=== PATIENT | female | born 1940 | race Caucasian/White ===

== ENCOUNTER 2017-07-23 19:53 | Emergency (ER) | payer MEDICARE, BC ==
[~2017-07-23] VITALS: Ht 162.6 cm; Wt 118.2 kg
[~2017-07-23 19:53] MED LIST: CA C1TAB58 PO; CHOL100046 PO; FURO-150 PO; POTA-82 PO; VIT1CAPS12 PO
[2017-07-23] MEDS ORDERED: clindamycin 150mg capsule PO ONE (21:35)
[2017-07-23] MEDS ORDERED: CLIN-80 PO (21:37)
[2017-07-23 22:01] VITALS: BP 102/74
== END 2017-07-23 22:03 | disposition home or self-care (01) ==
LOC: ER 19:54
DX: L03.116 Cellulitis of left lower limb (principal); L03.115 Cellulitis of right lower limb; L02.416 Cutaneous abscess of left lower limb; L02.415 Cutaneous abscess of right lower limb; Z88.8 Allergy status to other drugs, medicaments and biological substances
CPT/HCPCS: 99284; A6253; A6449

== ENCOUNTER 2017-11-17 19:08 | Inpatient (IN) | payer MEDICARE, BC ==
[~2017-11-17] VITALS: Ht 162.6 cm; Wt 144.0 kg
[2017-11-17 23:37] LABS: BASOPHILS # (AUTO) 0.1 X10'3 (0-0.2); BASOPHILS % (AUTO) 0.9 % (0-1); EOSINOPHILS # (AUTO) 0.2 X10'3 (0-0.9); EOSINOPHILS % (AUTO) 1.9 % (0-6); HEMATOCRIT 36.2 % (35.0-45.0); LYMPHOCYTES # (AUTO) 1.5 X10'3 (1.1-4.8); LYMPHOCYTES % (AUTO) 15.8 % (21-51); MEAN CORPUSCULAR HEMOGLOBIN 32.4 PG (27.0-31.0); MEAN CORPUSCULAR HGB CONC 33.3 % (33.0-36.5); MEAN CORPUSCULAR VOLUME 97.4 FL (78-98); MEAN PLATELET VOLUME 8.1 FL (7.4-10.4); MONOCYTES # (AUTO) 0.8 X10'3 (0-0.9); NEUTROPHILS # (AUTO) 7.1 X10'3 (1.8-7.7); NEUTROPHILS % (AUTO) 73.4 % (42-75); PLATELET COUNT 246 X10'3 (140-440); RED BLOOD COUNT 3.71 X10'6 (4.20-5.60); RED CELL DISTRIBUTION WIDTH 14.6 % (11.5-14.5); WHITE BLOOD COUNT 9.7 X10'3 (4.5-11.0)
[2017-11-17 23:43] LABS: CLARITY,URINE CLEAR (Clear); COLOR,URINE YELLOW (Yellow); GLUCOSE, URINE NEGATIVE (Neg); KETONES,URINE NEGATIVE (Neg); LEUKOCYTE ESTERASE ,URINE NEGATIVE (Neg); NITRITES, URINE NEGATIVE (Neg); OCCULT BLOOD,URINE NEGATIVE (Neg); PH,URINE 6.5 (4.8-8.0); PROTEIN,URINE NEGATIVE (Neg); UROBILINOGEN,URINE 0.2 E.U/dL (0.2-1.0)
[2017-11-17 23:44] LABS: UA COLLECTION TYPE STRAIGHT CATH
[2017-11-17 23:53] LABS: ALANINE AMINOTRANSFERASE 20 U/L (12-78); ALBUMIN 3.1 G/DL (3.4-5.0); ALBUMIN/GLOBULIN RATIO 0.7 (1.1-1.5); ALKALINE PHOSPHATASE 76 IU/L (46-116); ANION GAP 6 (8-16); ASPARTATE AMINO TRANSFERASE 19 U/L (10-37); BILIRUBIN,TOTAL 0.2 MG/DL (0.1-1.0); BLOOD UREA NITROGEN 18 MG/DL (7-18); BUN/CREATININE RATIO 22.8 (6.6-38.0); CALCIUM 9.2 MG/DL (8.5-10.1); CHLORIDE 104 MMOL/L (99-107); CREATININE 0.79 MG/DL (0.40-0.90); GLUCOSE 102 MG/DL (70-104); POTASSIUM 4.1 MMOL/L (3.5-5.1); SODIUM 143 MMOL/L (135-145); TOTAL CARBON DIOXIDE 32.7 MMOL/L (24-32); TOTAL PROTEIN 7.3 G/DL (6.4-8.2); eGFR 70 ML/MIN
[2017-11-18] MEDS ORDERED: HYDROcodone/acetaminophen 10/325mg tab PO ONE (00:20)
[2017-11-18] MEDS ORDERED: HYDR-3965 PO (00:29)
[2017-11-18] MEDS ORDERED: OXYB5TAB11 PO (00:29)
[2017-11-18] MEDS ORDERED: SIMV40TA4 PO (00:29)
[2017-11-18] MEDS ORDERED: RANI150T44 PO (00:31)
[2017-11-18] MEDS ORDERED: TETR15DR85 (00:31)
[2017-11-18] MEDS ORDERED: LOPE-155 (00:32)
[2017-11-18] MEDS ORDERED: magnesium hydroxide 30ml (MOM) UD suspension PO PRN (00:45)
[2017-11-18] MEDS ORDERED: HYDROcodone/acetaminophen 5mg/325mg tablet PO PRN ×2 (00:45→13:00)
[2017-11-18] MEDS ORDERED: mag hydrox/Alum hydrox/simeth 30ml oral suspension PO PRN (00:45)
[2017-11-18] MEDS ORDERED: acetaminophen 325mg tablet PO PRN (00:45)
[2017-11-18] MEDS ORDERED: morphine 4 MG/ML inj SYRINge IV ONE (00:45)
[2017-11-18] MEDS ORDERED: docusate sod 100mg capsule PO PRN (00:45)
[2017-11-18 02:00] VITALS: BP 131/50
[2017-11-18] MEDS: ondansetron/PF 4mg/2ml inj IV PRN ×2 (02:00→20:41)
[2017-11-18 06:00] VITALS: BP 101/41
[2017-11-18] MEDS: HYDROcodone/acetaminophen 10/325mg tab PO PRN ×3 (07:12→20:40)
[2017-11-18 10:00] VITALS: BP 101/41
[2017-11-18 10:45] LABS: CHOL/HDL RATIO 4.2 (0.00-4.99); CHOLESTEROL 209 MG/DL (0-200); HDL CHOLESTEROL 50 MG/DL (35-60); LDL CHOLESTEROL 137 MG/DL (50-100); TRIGLYCERIDES 97 MG/DL (20-135)
[2017-11-18] MEDS ORDERED: famotidine 20mg tablet PO PRN (11:55)
[2017-11-18] MEDS: levoFLOXACIN-Levaquin 750MG/D5 150 ML IV SCH (17:26)
[2017-11-18 18:00] VITALS: BP 142/56
[2017-11-18] MEDS ORDERED: VIT D3 PO SCH (20:00)
[2017-11-18] MEDS ORDERED: DL E AC PO SCH (20:00)
[2017-11-18] MEDS ORDERED: MGOX PO SCH (20:00)
[2017-11-18] MEDS ORDERED: LUT PO SCH (20:00)
[2017-11-18] MEDS ORDERED: CA CITRATE PO SCH (20:00)
[2017-11-18] MEDS ORDERED: B6 PO SCH (20:00)
[2017-11-18] MEDS ORDERED: [UNRECOGNIZED DRUG - OTHER] PO SCH (20:00)
[2017-11-18] MEDS ORDERED: VIT C PO SCH (20:00)
[2017-11-18] MEDS ORDERED: ZNOX PO SCH (20:00)
[2017-11-18] MEDS ORDERED: COPPER PO SCH (20:00)
[2017-11-18] MEDS: atorvastatin 20mg tablet PO SCH (20:40)
[2017-11-18] MEDS: oxybutynin 5mg tablet PO SCH (20:41)
[2017-11-18] MEDS ORDERED: atorvastatin 20mg tablet PO SCH (21:00)
[2017-11-18 22:00] VITALS: BP 119/47
[2017-11-19] MEDS ORDERED: metoclopramide 5 mg/ml inj IV ONE (01:30)
[2017-11-19] MEDS: HYDROcodone/acetaminophen 10/325mg tab PO PRN ×3 (04:45→15:28)
[2017-11-19 05:00] VITALS: BP 136/47
[2017-11-19 07:31] LABS: BASOPHILS % (AUTO) 0.2 % (0-1); EOSINOPHILS % (AUTO) 0.2 % (0-6); HEMATOCRIT 33.2 % (35.0-45.0); LYMPHOCYTES # (AUTO) 1.2 X10'3 (1.1-4.8); LYMPHOCYTES % (AUTO) 15.2 % (21-51); MEAN CORPUSCULAR HEMOGLOBIN 32.2 PG (27.0-31.0); MEAN CORPUSCULAR HGB CONC 33.2 % (33.0-36.5); MEAN CORPUSCULAR VOLUME 97.1 FL (78-98); MEAN PLATELET VOLUME 8.1 FL (7.4-10.4); MONOCYTES # (AUTO) 0.5 X10'3 (0-0.9); MONOCYTES % (AUTO) 6.2 % (2-12); NEUTROPHILS % (AUTO) 78.2 % (42-75); PLATELET COUNT 206 X10'3 (140-440); RED BLOOD COUNT 3.42 X10'6 (4.20-5.60); RED CELL DISTRIBUTION WIDTH 14.4 % (11.5-14.5); WHITE BLOOD COUNT 7.7 X10'3 (4.5-11.0)
[2017-11-19] MEDS: oxybutynin 5mg tablet PO SCH ×2 (07:46→20:52)
[2017-11-19] MEDS: levoFLOXACIN-Levaquin 750MG/D5 150 ML IV SCH (07:46)
[2017-11-19] MEDS: enoxaparin 60mg/0.6ml syringe SUBCUT SCH (07:47)
[2017-11-19 08:00] LABS: ALBUMIN 2.7 G/DL (3.4-5.0); ANION GAP 8 (8-16); BLOOD UREA NITROGEN 19 MG/DL (7-18); BUN/CREATININE RATIO 24.1 (6.6-38.0); CALCIUM 8.5 MG/DL (8.5-10.1); CHLORIDE 102 MMOL/L (99-107); CREATININE 0.79 MG/DL (0.40-0.90); GLUCOSE 100 MG/DL (70-104); POTASSIUM 4.3 MMOL/L (3.5-5.1); SODIUM 140 MMOL/L (135-145); TOTAL CARBON DIOXIDE 30.4 MMOL/L (24-32); eGFR 70 ML/MIN
[2017-11-19 10:06] VITALS: BP 120/46
[2017-11-19] MEDS: ondansetron/PF 4mg/2ml inj IV PRN (10:35)
[2017-11-19 18:00] VITALS: BP 126/46
[2017-11-19] MEDS: atorvastatin 20mg tablet PO SCH (20:52)
[2017-11-19] MEDS: lactobacillus rhamnosus 10,000 MMU CELLS/CAPSULE PO SCH (20:52)
[2017-11-19 22:00] VITALS: BP 124/45
[2017-11-20] MEDS: HYDROcodone/acetaminophen 10/325mg tab PO PRN ×4 (00:12→20:05)
[2017-11-20 05:00] VITALS: BP 114/48
[2017-11-20 06:18] LABS: BASOPHILS % (AUTO) 0.6 % (0-1); EOSINOPHILS # (AUTO) 0.3 X10'3 (0-0.9); HEMATOCRIT 32.9 % (35.0-45.0); HEMOGLOBIN 10.9 g/dl (12.0-16.0); LYMPHOCYTES # (AUTO) 1.6 X10'3 (1.1-4.8); LYMPHOCYTES % (AUTO) 21.2 % (21-51); MEAN CORPUSCULAR HEMOGLOBIN 32.2 PG (27.0-31.0); MEAN CORPUSCULAR HGB CONC 33.2 % (33.0-36.5); MEAN CORPUSCULAR VOLUME 96.9 FL (78-98); MEAN PLATELET VOLUME 7.8 FL (7.4-10.4); MONOCYTES # (AUTO) 0.8 X10'3 (0-0.9); MONOCYTES % (AUTO) 10.9 % (2-12); NEUTROPHILS # (AUTO) 4.9 X10'3 (1.8-7.7); NEUTROPHILS % (AUTO) 63.3 % (42-75); PLATELET COUNT 220 X10'3 (140-440); RED BLOOD COUNT 3.39 X10'6 (4.20-5.60); RED CELL DISTRIBUTION WIDTH 14.5 % (11.5-14.5); WHITE BLOOD COUNT 7.8 X10'3 (4.5-11.0)
[2017-11-20 06:45] LABS: ALBUMIN 2.6 G/DL (3.4-5.0); ANION GAP 5 (8-16); BLOOD UREA NITROGEN 14 MG/DL (7-18); BUN/CREATININE RATIO 18.7 (6.6-38.0); CALCIUM 8.7 MG/DL (8.5-10.1); CHLORIDE 104 MMOL/L (99-107); CREATININE 0.75 MG/DL (0.40-0.90); GLUCOSE 85 MG/DL (70-104); SODIUM 142 MMOL/L (135-145); TOTAL CARBON DIOXIDE 32.7 MMOL/L (24-32); eGFR 75 ML/MIN
[2017-11-20] MEDS: lactobacillus rhamnosus 10,000 MMU CELLS/CAPSULE PO SCH ×2 (08:09→20:04)
[2017-11-20] MEDS: enoxaparin 60mg/0.6ml syringe SUBCUT SCH (08:09)
[2017-11-20] MEDS: oxybutynin 5mg tablet PO SCH ×2 (08:09→20:04)
[2017-11-20] MEDS: levoFLOXACIN-Levaquin 750MG/D5 150 ML IV SCH (08:09)
[2017-11-20] MEDS: ondansetron/PF 4mg/2ml inj IV PRN (08:11)
[2017-11-20 10:00] VITALS: BP 108/44
[2017-11-20 18:00] VITALS: BP 117/99
[2017-11-20] MEDS: atorvastatin 20mg tablet PO SCH (20:04)
[2017-11-20 22:00] VITALS: BP 118/46
[2017-11-21] MEDS: HYDROcodone/acetaminophen 10/325mg tab PO PRN ×3 (02:42→12:13)
[2017-11-21 06:00] VITALS: BP 126/66
[2017-11-21 06:10] LABS: BASOPHILS % (AUTO) 0.4 % (0-1); EOSINOPHILS # (AUTO) 0.3 X10'3 (0-0.9); EOSINOPHILS % (AUTO) 3.4 % (0-6); HEMATOCRIT 32.9 % (35.0-45.0); HEMOGLOBIN 11.1 g/dl (12.0-16.0); LYMPHOCYTES # (AUTO) 1.5 X10'3 (1.1-4.8); LYMPHOCYTES % (AUTO) 19.9 % (21-51); MEAN CORPUSCULAR HEMOGLOBIN 32.6 PG (27.0-31.0); MEAN CORPUSCULAR HGB CONC 33.7 % (33.0-36.5); MEAN CORPUSCULAR VOLUME 96.7 FL (78-98); MEAN PLATELET VOLUME 7.6 FL (7.4-10.4); MONOCYTES % (AUTO) 12.7 % (2-12); NEUTROPHILS # (AUTO) 4.8 X10'3 (1.8-7.7); NEUTROPHILS % (AUTO) 63.6 % (42-75); PLATELET COUNT 236 X10'3 (140-440); RED CELL DISTRIBUTION WIDTH 14.1 % (11.5-14.5); WHITE BLOOD COUNT 7.6 X10'3 (4.5-11.0)
[2017-11-21 06:30] LABS: ANION GAP 5 (8-16); BLOOD UREA NITROGEN 17 MG/DL (7-18); BUN/CREATININE RATIO 20.7 (6.6-38.0); CHLORIDE 104 MMOL/L (99-107); CREATININE 0.82 MG/DL (0.40-0.90); GLUCOSE 92 MG/DL (70-104); SODIUM 142 MMOL/L (135-145); TOTAL CARBON DIOXIDE 33.4 MMOL/L (24-32)
[2017-11-21 06:31] LABS: ALBUMIN 2.5 G/DL (3.4-5.0); CALCIUM 8.4 MG/DL (8.5-10.1); eGFR 67 ML/MIN
[2017-11-21] MEDS: lactobacillus rhamnosus 10,000 MMU CELLS/CAPSULE PO SCH (07:51)
[2017-11-21] MEDS: oxybutynin 5mg tablet PO SCH (07:51)
[2017-11-21] MEDS: enoxaparin 60mg/0.6ml syringe SUBCUT SCH (07:54)
[2017-11-21 10:00] VITALS: BP 112/43
[2017-11-21] MEDS ORDERED: levoFLOXACIN 750MG TABLET PO SCH (11:00)
== END 2017-11-21 15:50 | DRG 603 ==
LOC: ER 19:08 → ED HOLD 11-18 00:41 → EDBEDREQ 11-18 01:27 → ORTHO 4S 11-18 02:05
PROVIDERS: ADMIT Internal Medicine; ATTEND Internal Medicine
DX: L03.115 Cellulitis of right lower limb (principal); J96.10 Chronic respiratory failure, unspecified whether with hypoxia or hypercapnia; Z99.81 Dependence on supplemental oxygen; E66.01 Morbid (severe) obesity due to excess calories; Z68.43 Body mass index [BMI] 50.0-59.9, adult; L03.116 Cellulitis of left lower limb; M17.11 Unilateral primary osteoarthritis, right knee; G89.29 Other chronic pain; J44.9 Chronic obstructive pulmonary disease, unspecified; M62.3 Immobility syndrome (paraplegic); I89.0 Lymphedema, not elsewhere classified; E78.5 Hyperlipidemia, unspecified; I87.2 Venous insufficiency (chronic) (peripheral); K21.9 Gastro-esophageal reflux disease without esophagitis; Z88.8 Allergy status to other drugs, medicaments and biological substances; Z79.899 Other long term (current) drug therapy; Z87.891 Personal history of nicotine dependence; Z80.3 Family history of malignant neoplasm of breast
CPT/HCPCS: 36415; 71045; 73560; 80048; 80053; 80061; 81003; 83880; 85025; 87070; 93970; 97110; 97116; 97162; 97530; 99285; A4353; A6213; J1650; J1956; J2270; J2405; J2765

== ENCOUNTER 2018-05-10 16:27 | Inpatient (IN) | payer MEDICARE, BC ==
[~2018-05-10] VITALS: Ht 162.6 cm; Wt 150.0 kg
[~2018-05-10 16:27] MED LIST changes: -CHOL100046 PO; -FURO-150 PO; +HYDR-3965 PO; +LOPE-155; +OXYB5TAB11 PO; -POTA-82 PO; +RANI150T44 PO; +SIMV40TA4 PO; +TETR15DR85
[2018-05-10] MEDS ORDERED: normal saline 1000ML IV soln IV ONE (16:40)
[2018-05-10] MEDS ORDERED: methylPREDNISolone sod succ 125mg/2ml vial IV ONE (16:45)
[2018-05-10] MEDS ORDERED: ipratropium/albuterol 3ml nebule NEB ONE (16:45)
[2018-05-10 17:02] LABS: BASOPHILS % (AUTO) 0.4 % (0-1); EOSINOPHILS # (AUTO) 0.2 X10'3 (0-0.9); EOSINOPHILS % (AUTO) 3.2 % (0-6); HEMATOCRIT 37.3 % (35.0-45.0); HEMOGLOBIN 12.2 g/dl (12.0-16.0); LYMPHOCYTES % (AUTO) 25.4 % (21-51); MEAN CORPUSCULAR HEMOGLOBIN 31.8 PG (27.0-31.0); MEAN CORPUSCULAR HGB CONC 32.6 % (33.0-36.5); MEAN CORPUSCULAR VOLUME 97.7 FL (78-98); MEAN PLATELET VOLUME 7.6 FL (7.4-10.4); MONOCYTES # (AUTO) 0.7 X10'3 (0-0.9); MONOCYTES % (AUTO) 8.5 % (2-12); NEUTROPHILS # (AUTO) 4.8 X10'3 (1.8-7.7); NEUTROPHILS % (AUTO) 62.5 % (42-75); PLATELET COUNT 259 X10'3 (140-440); RED BLOOD COUNT 3.82 X10'6 (4.20-5.60); RED CELL DISTRIBUTION WIDTH 15.2 % (11.5-14.5); WHITE BLOOD COUNT 7.7 X10'3 (4.5-11.0)
[2018-05-10] MEDS ORDERED: ondansetron/PF 4mg/2ml inj IV ONE (17:05)
[2018-05-10 17:17] LABS: ALANINE AMINOTRANSFERASE 19 U/L (12-78); ALBUMIN 2.8 G/DL (3.4-5.0); ALBUMIN/GLOBULIN RATIO 0.6 (1.1-1.5); ALKALINE PHOSPHATASE 86 IU/L (46-116); ANION GAP 6 (8-16); ASPARTATE AMINO TRANSFERASE 15 U/L (10-37); BILIRUBIN,TOTAL 0.3 MG/DL (0.1-1.0); BLOOD UREA NITROGEN 19 MG/DL (7-18); BUN/CREATININE RATIO 29.2 (6.6-38.0); CALCIUM 8.8 MG/DL (8.5-10.1); CHLORIDE 105 MMOL/L (99-107); CREATINE KINASE 23 U/L (26-192); CREATININE 0.65 MG/DL (0.40-0.90); GLUCOSE 114 MG/DL (70-104); POTASSIUM 4.5 MMOL/L (3.5-5.1); SODIUM 145 MMOL/L (135-145); TOTAL CARBON DIOXIDE 34.5 MMOL/L (24-32); TOTAL PROTEIN 7.3 G/DL (6.4-8.2); eGFR 88 ML/MIN
[2018-05-10] MEDS ORDERED: morphine 4 MG/ML inj SYRINge IV ONE (17:20)
[2018-05-10] MEDS ORDERED: azithromycin/NS 500mg/250ml 250 ML IV ONE (17:40)
[2018-05-10] MEDS ORDERED: CefTRIAXone 2gm/D5W 50ml 50 ML IV ONE (17:40)
[2018-05-10 17:45] LABS: CLARITY,URINE CLEAR (Clear); COLOR,URINE STRAW (Yellow); GLUCOSE, URINE NEGATIVE (Neg); KETONES,URINE NEGATIVE (Neg); LEUKOCYTE ESTERASE ,URINE NEGATIVE (Neg); NITRITES, URINE NEGATIVE (Neg); OCCULT BLOOD,URINE NEGATIVE (Neg); PH,URINE 7.5 (4.8-8.0); PROTEIN,URINE NEGATIVE (Neg); UROBILINOGEN,URINE 0.2 E.U/dL (0.2-1.0)
[2018-05-10 17:57] LABS: UA COLLECTION TYPE STRAIGHT CATH
[2018-05-10] MEDS ORDERED: acetaminophen 325mg tablet PO PRN (19:25)
[2018-05-10] MEDS ORDERED: potassium Cl 20 mEq SR tablet PO PRN ×2 (19:25)
[2018-05-10] MEDS ORDERED: mag hydrox/Alum hydrox/simeth 30ml oral suspension PO PRN (19:25)
[2018-05-10] MEDS ORDERED: potassium Cl 40MEQ/NS 500ml 500 ML IV PRN ×2 (19:25)
[2018-05-10] MEDS ORDERED: magnesium 1gm/100ml D5W IVPB 100 ML IV PRN (19:25)
[2018-05-10] MEDS ORDERED: ipratropium/albuterol 3ml nebule NEB PRN (19:25)
[2018-05-10] MEDS ORDERED: magnesium hydroxide 30ml (MOM) UD suspension PO PRN (19:25)
[2018-05-10] MEDS ORDERED: magnesium 4gm in 100ml NS 100 ML IV PRN (19:25)
[2018-05-10] MEDS ORDERED: LACT1CAP65 PO (19:34)
[2018-05-10] MEDS ORDERED: stool softener PO (19:34)
[2018-05-10 21:30] VITALS: BP 132/52
[2018-05-10] MEDS: HYDROcodone/acetaminophen 10/325mg tab PO PRN (23:38)
[2018-05-11] VITALS: BP 153/64
[2018-05-11] MEDS: HYDROcodone/acetaminophen 10/325mg tab PO PRN ×3 (04:51→22:28)
[2018-05-11 06:12] LABS: BASOPHILS % (AUTO) 0.1 % (0-1); EOSINOPHILS % (AUTO) 0 % (0-6); HEMATOCRIT 35.5 % (35.0-45.0); HEMOGLOBIN 11.7 g/dl (12.0-16.0); LYMPHOCYTES # (AUTO) 0.8 X10'3 (1.1-4.8); LYMPHOCYTES % (AUTO) 9.4 % (21-51); MEAN CORPUSCULAR HEMOGLOBIN 31.8 PG (27.0-31.0); MEAN CORPUSCULAR HGB CONC 32.9 % (33.0-36.5); MEAN CORPUSCULAR VOLUME 96.7 FL (78-98); MONOCYTES % (AUTO) 0.2 % (2-12); NEUTROPHILS # (AUTO) 7.4 X10'3 (1.8-7.7); NEUTROPHILS % (AUTO) 90.3 % (42-75); PLATELET COUNT 236 X10'3 (140-440); RED BLOOD COUNT 3.67 X10'6 (4.20-5.60); RED CELL DISTRIBUTION WIDTH 15.1 % (11.5-14.5); WHITE BLOOD COUNT 8.2 X10'3 (4.5-11.0)
[2018-05-11 06:23] LABS: ALANINE AMINOTRANSFERASE 14 U/L (12-78); ALBUMIN 2.6 G/DL (3.4-5.0); ALBUMIN/GLOBULIN RATIO 0.6 (1.1-1.5); ALKALINE PHOSPHATASE 78 IU/L (46-116); ANION GAP 6 (8-16); ASPARTATE AMINO TRANSFERASE 15 U/L (10-37); BILIRUBIN,TOTAL 0.2 MG/DL (0.1-1.0); BLOOD UREA NITROGEN 17 MG/DL (7-18); BUN/CREATININE RATIO 23.6 (6.6-38.0); CALCIUM 8.8 MG/DL (8.5-10.1); CHLORIDE 105 MMOL/L (99-107); CREATININE 0.72 MG/DL (0.40-0.90); GLUCOSE 134 MG/DL (70-104); POTASSIUM 4.4 MMOL/L (3.5-5.1); SODIUM 143 MMOL/L (135-145); TOTAL PROTEIN 6.9 G/DL (6.4-8.2); eGFR 78 ML/MIN
[2018-05-11 06:27] LABS: CHOL/HDL RATIO 4.6 (0.00-4.99); CHOLESTEROL 279 MG/DL (0-200); HDL CHOLESTEROL 61 MG/DL (35-60); LDL CHOLESTEROL 203 MG/DL (50-100); MAGNESIUM 1.6 MG/DL (1.5-2.4); TRIGLYCERIDES 48 MG/DL (20-135)
[2018-05-11 07:00] VITALS: BP 131/57
[2018-05-11] MEDS: ondansetron/PF 4mg/2ml inj IV PRN ×2 (07:31→13:42)
[2018-05-11] MEDS: K and/or MAG REPLACEMENT MC SCH (08:00)
[2018-05-11] MEDS ORDERED: CefTRIAXone/D5W-Rocephin 1gm 50 ML IV SCH (08:00)
[2018-05-11] MEDS: enoxaparin 40mg/0.4ml syringe SQ SCH (09:10)
[2018-05-11] MEDS: nystatin 15 GM powder TP SCH ×3 (09:10→20:25)
[2018-05-11 11:00] VITALS: BP 119/47
[2018-05-11] MEDS ORDERED: levoFLOXACIN 750MG TABLET PO SCH (11:00)
[2018-05-11] MEDS ORDERED: baclofen 10mg tablet PO PRN (14:40)
[2018-05-11] MEDS: metoclopramide 5 mg/ml inj IV PRN ×2 (15:07→22:31)
[2018-05-11 18:00] VITALS: BP 128/51
[2018-05-11] MEDS: lactobacillus rhamnosus 10,000 MMU CELLS/CAPSULE PO SCH (20:25)
[2018-05-11] MEDS: ceFAZolin 1GM/D5W- ADD-VANTAGE 50 ML IV SCH (23:47)
[2018-05-12] VITALS: BP 122/50
[2018-05-12] MEDS: HYDROcodone/acetaminophen 10/325mg tab PO PRN ×4 (04:01→23:23)
[2018-05-12 05:38] LABS: BASOPHILS % (AUTO) 0.2 % (0-1); EOSINOPHILS % (AUTO) 0 % (0-6); HEMATOCRIT 34.2 % (35.0-45.0); HEMOGLOBIN 11.2 g/dl (12.0-16.0); LYMPHOCYTES # (AUTO) 1.2 X10'3 (1.1-4.8); LYMPHOCYTES % (AUTO) 9.3 % (21-51); MEAN CORPUSCULAR HEMOGLOBIN 31.7 PG (27.0-31.0); MEAN CORPUSCULAR HGB CONC 32.8 % (33.0-36.5); MEAN CORPUSCULAR VOLUME 96.5 FL (78-98); MEAN PLATELET VOLUME 8.4 FL (7.4-10.4); MONOCYTES # (AUTO) 0.8 X10'3 (0-0.9); MONOCYTES % (AUTO) 5.9 % (2-12); NEUTROPHILS % (AUTO) 84.6 % (42-75); PLATELET COUNT 234 X10'3 (140-440); RED BLOOD COUNT 3.54 X10'6 (4.20-5.60); RED CELL DISTRIBUTION WIDTH 14.9 % (11.5-14.5)
[2018-05-12 06:04] LABS: ALANINE AMINOTRANSFERASE 15 U/L (12-78); ALBUMIN 2.5 G/DL (3.4-5.0); ALBUMIN/GLOBULIN RATIO 0.6 (1.1-1.5); ALKALINE PHOSPHATASE 67 IU/L (46-116); ANION GAP 4 (8-16); ASPARTATE AMINO TRANSFERASE 13 U/L (10-37); BILIRUBIN,TOTAL 0.3 MG/DL (0.1-1.0); BLOOD UREA NITROGEN 25 MG/DL (7-18); BUN/CREATININE RATIO 31.3 (6.6-38.0); CALCIUM 8.7 MG/DL (8.5-10.1); CHLORIDE 104 MMOL/L (99-107); GLUCOSE 93 MG/DL (70-104); MAGNESIUM 1.8 MG/DL (1.5-2.4); POTASSIUM 4.3 MMOL/L (3.5-5.1); SODIUM 141 MMOL/L (135-145); TOTAL CARBON DIOXIDE 33.1 MMOL/L (24-32); TOTAL PROTEIN 6.6 G/DL (6.4-8.2); eGFR 69 ML/MIN
[2018-05-12 07:00] VITALS: BP 115/47
[2018-05-12] MEDS: ceFAZolin 1GM/D5W- ADD-VANTAGE 50 ML IV SCH ×3 (07:53→23:16)
[2018-05-12] MEDS: nystatin 15 GM powder TP SCH ×3 (07:53→20:12)
[2018-05-12] MEDS: lactobacillus rhamnosus 10,000 MMU CELLS/CAPSULE PO SCH ×2 (07:54→20:12)
[2018-05-12] MEDS: enoxaparin 40mg/0.4ml syringe SQ SCH (07:55)
[2018-05-12] MEDS: K and/or MAG REPLACEMENT MC SCH (07:55)
[2018-05-12 11:42] VITALS: BP 117/52
[2018-05-12 18:00] VITALS: BP 135/57
[2018-05-13] VITALS: BP 125/51
[2018-05-13] MEDS: HYDROcodone/acetaminophen 10/325mg tab PO PRN ×3 (05:39→14:29)
[2018-05-13 06:22] LABS: BASOPHILS % (AUTO) 0.4 % (0-1); EOSINOPHILS # (AUTO) 0.1 X10'3 (0-0.9); HEMATOCRIT 35.2 % (35.0-45.0); HEMOGLOBIN 11.5 g/dl (12.0-16.0); LYMPHOCYTES # (AUTO) 1.7 X10'3 (1.1-4.8); LYMPHOCYTES % (AUTO) 20.9 % (21-51); MEAN CORPUSCULAR HEMOGLOBIN 31.8 PG (27.0-31.0); MEAN CORPUSCULAR HGB CONC 32.5 % (33.0-36.5); MEAN CORPUSCULAR VOLUME 97.7 FL (78-98); MEAN PLATELET VOLUME 8.3 FL (7.4-10.4); MONOCYTES # (AUTO) 0.8 X10'3 (0-0.9); MONOCYTES % (AUTO) 9.3 % (2-12); NEUTROPHILS # (AUTO) 5.6 X10'3 (1.8-7.7); NEUTROPHILS % (AUTO) 68.4 % (42-75); PLATELET COUNT 214 X10'3 (140-440); WHITE BLOOD COUNT 8.2 X10'3 (4.5-11.0)
[2018-05-13 07:00] VITALS: BP 123/51
[2018-05-13 07:03] LABS: ALANINE AMINOTRANSFERASE 14 U/L (12-78); ALBUMIN 2.7 G/DL (3.4-5.0); ALBUMIN/GLOBULIN RATIO 0.7 (1.1-1.5); ALKALINE PHOSPHATASE 68 IU/L (46-116); ANION GAP 7 (8-16); ASPARTATE AMINO TRANSFERASE 13 U/L (10-37); BILIRUBIN,TOTAL 0.2 MG/DL (0.1-1.0); BLOOD UREA NITROGEN 24 MG/DL (7-18); BUN/CREATININE RATIO 30.8 (6.6-38.0); CALCIUM 8.8 MG/DL (8.5-10.1); CHLORIDE 103 MMOL/L (99-107); CREATININE 0.78 MG/DL (0.40-0.90); GLUCOSE 84 MG/DL (70-104); MAGNESIUM 1.8 MG/DL (1.5-2.4); SODIUM 144 MMOL/L (135-145); TOTAL PROTEIN 6.6 G/DL (6.4-8.2); eGFR 71 ML/MIN
[2018-05-13] MEDS: K and/or MAG REPLACEMENT MC SCH (08:00)
[2018-05-13] MEDS: enoxaparin 40mg/0.4ml syringe SQ SCH (08:10)
[2018-05-13] MEDS: ceFAZolin 1GM/D5W- ADD-VANTAGE 50 ML IV SCH ×3 (08:10→23:58)
[2018-05-13] MEDS: lactobacillus rhamnosus 10,000 MMU CELLS/CAPSULE PO SCH ×2 (08:10→20:38)
[2018-05-13] MEDS: nystatin 15 GM powder TP SCH ×3 (08:13→20:39)
[2018-05-13 11:56] VITALS: BP 111/48
[2018-05-13 18:00] VITALS: BP 126/55
[2018-05-14] VITALS: BP 127/51
[2018-05-14] MEDS: HYDROcodone/acetaminophen 5mg/325mg tablet PO PRN ×2 (03:43→08:58)
[2018-05-14 04:40] LABS: BASOPHILS % (AUTO) 0.4 % (0-1); EOSINOPHILS # (AUTO) 0.3 X10'3 (0-0.9); EOSINOPHILS % (AUTO) 3.8 % (0-6); HEMATOCRIT 33.8 % (35.0-45.0); HEMOGLOBIN 11.2 g/dl (12.0-16.0); LYMPHOCYTES # (AUTO) 1.9 X10'3 (1.1-4.8); MEAN CORPUSCULAR HEMOGLOBIN 31.9 PG (27.0-31.0); MEAN CORPUSCULAR HGB CONC 33.1 % (33.0-36.5); MEAN CORPUSCULAR VOLUME 96.4 FL (78-98); MONOCYTES # (AUTO) 0.9 X10'3 (0-0.9); MONOCYTES % (AUTO) 11.5 % (2-12); NEUTROPHILS # (AUTO) 4.3 X10'3 (1.8-7.7); NEUTROPHILS % (AUTO) 58.3 % (42-75); PLATELET COUNT 221 X10'3 (140-440); RED BLOOD COUNT 3.51 X10'6 (4.20-5.60); WHITE BLOOD COUNT 7.4 X10'3 (4.5-11.0)
[2018-05-14 04:53] LABS: ALANINE AMINOTRANSFERASE 19 U/L (12-78); ALBUMIN 2.5 G/DL (3.4-5.0); ALBUMIN/GLOBULIN RATIO 0.7 (1.1-1.5); ALKALINE PHOSPHATASE 62 IU/L (46-116); ANION GAP 2 (8-16); ASPARTATE AMINO TRANSFERASE 23 U/L (10-37); BILIRUBIN,TOTAL 0.3 MG/DL (0.1-1.0); BLOOD UREA NITROGEN 21 MG/DL (7-18); BUN/CREATININE RATIO 30.9 (6.6-38.0); CALCIUM 8.7 MG/DL (8.5-10.1); CHLORIDE 104 MMOL/L (99-107); CREATININE 0.68 MG/DL (0.40-0.90); GLUCOSE 86 MG/DL (70-104); MAGNESIUM 1.8 MG/DL (1.5-2.4); POTASSIUM 4.1 MMOL/L (3.5-5.1); SODIUM 142 MMOL/L (135-145); TOTAL CARBON DIOXIDE 36.4 MMOL/L (24-32); TOTAL PROTEIN 6.3 G/DL (6.4-8.2); eGFR 83 ML/MIN
[2018-05-14 08:00] VITALS: BP 128/45
[2018-05-14] MEDS: K and/or MAG REPLACEMENT MC SCH (08:00)
[2018-05-14] MEDS: ceFAZolin 1GM/D5W- ADD-VANTAGE 50 ML IV SCH ×2 (08:58→17:00)
[2018-05-14] MEDS: lactobacillus rhamnosus 10,000 MMU CELLS/CAPSULE PO SCH ×2 (08:58→19:30)
[2018-05-14] MEDS: nystatin 15 GM powder TP SCH ×3 (08:59→19:30)
[2018-05-14] MEDS: enoxaparin 40mg/0.4ml syringe SQ SCH (08:59)
[2018-05-14] MEDS: furosemide 40mg tablet PO SCH (10:13)
[2018-05-14 12:00] VITALS: BP 143/53
[2018-05-14 19:00] VITALS: BP 96/54
[2018-05-14] MEDS: HYDROcodone/acetaminophen 10/325mg tab PO PRN (22:15)
[2018-05-15] VITALS: BP 109/46
[2018-05-15] MEDS: ceFAZolin 1GM/D5W- ADD-VANTAGE 50 ML IV SCH ×2 (00:17→09:16)
[2018-05-15] MEDS: HYDROcodone/acetaminophen 10/325mg tab PO PRN (04:45)
[2018-05-15 06:17] LABS: BASOPHILS # (AUTO) 0.1 X10'3 (0-0.2); BASOPHILS % (AUTO) 0.7 % (0-1); EOSINOPHILS # (AUTO) 0.3 X10'3 (0-0.9); EOSINOPHILS % (AUTO) 3.7 % (0-6); HEMOGLOBIN 11.5 g/dl (12.0-16.0); LYMPHOCYTES % (AUTO) 28.1 % (21-51); MEAN CORPUSCULAR HEMOGLOBIN 31.7 PG (27.0-31.0); MEAN CORPUSCULAR HGB CONC 32.9 % (33.0-36.5); MEAN CORPUSCULAR VOLUME 96.4 FL (78-98); MEAN PLATELET VOLUME 8.1 FL (7.4-10.4); MONOCYTES # (AUTO) 0.8 X10'3 (0-0.9); MONOCYTES % (AUTO) 10.9 % (2-12); NEUTROPHILS # (AUTO) 4.1 X10'3 (1.8-7.7); NEUTROPHILS % (AUTO) 56.6 % (42-75); PLATELET COUNT 210 X10'3 (140-440); RED BLOOD COUNT 3.63 X10'6 (4.20-5.60); RED CELL DISTRIBUTION WIDTH 14.6 % (11.5-14.5); WHITE BLOOD COUNT 7.2 X10'3 (4.5-11.0)
[2018-05-15 06:31] LABS: ALANINE AMINOTRANSFERASE 16 U/L (12-78); ALBUMIN 2.6 G/DL (3.4-5.0); ALBUMIN/GLOBULIN RATIO 0.7 (1.1-1.5); ALKALINE PHOSPHATASE 63 IU/L (46-116); ANION GAP 3 (8-16); ASPARTATE AMINO TRANSFERASE 20 U/L (10-37); BILIRUBIN,TOTAL 0.4 MG/DL (0.1-1.0); BLOOD UREA NITROGEN 19 MG/DL (7-18); BUN/CREATININE RATIO 24.7 (6.6-38.0); CALCIUM 8.6 MG/DL (8.5-10.1); CHLORIDE 102 MMOL/L (99-107); CREATININE 0.77 MG/DL (0.40-0.90); GLUCOSE 89 MG/DL (70-104); MAGNESIUM 1.5 MG/DL (1.5-2.4); POTASSIUM 3.7 MMOL/L (3.5-5.1); SODIUM 143 MMOL/L (135-145); TOTAL CARBON DIOXIDE 38.5 MMOL/L (24-32); TOTAL PROTEIN 6.3 G/DL (6.4-8.2); eGFR 72 ML/MIN
[2018-05-15] MEDS: K and/or MAG REPLACEMENT MC SCH (08:00)
[2018-05-15] MEDS: nystatin 15 GM powder TP SCH ×2 (08:00→13:00)
[2018-05-15] MEDS: lactobacillus rhamnosus 10,000 MMU CELLS/CAPSULE PO SCH (09:17)
[2018-05-15] MEDS: furosemide 40mg tablet PO SCH (09:17)
[2018-05-15] MEDS: enoxaparin 40mg/0.4ml syringe SQ SCH (09:17)
[2018-05-15] MEDS ORDERED: EYE VITAMIN (09:57)
[2018-05-15] MEDS ORDERED: CHOL10002 PO (09:58)
[2018-05-15] MEDS ORDERED: HYDR-3972 PO (09:58)
[2018-05-15] MEDS ORDERED: OXYB5TAB11 PO (09:59)
[2018-05-15] MEDS ORDERED: LACT1CAP65 PO (09:59)
[2018-05-15] MEDS ORDERED: DOCU-264 PO (10:01)
[2018-05-15] MEDS ORDERED: SIMV20TA5 PO (10:01)
[2018-05-15 12:02] VITALS: BP 108/46
== END 2018-05-15 14:50 | DRG 602 ==
LOC: ER 16:28 → ED HOLD 19:25 → SUR 3N 20:45
PROVIDERS: ADMIT Family Medicine; ATTEND Internal Medicine
DX: L03.115 Cellulitis of right lower limb (principal); J18.1 Lobar pneumonia, unspecified organism; Z68.43 Body mass index [BMI] 50.0-59.9, adult; J44.0 Chronic obstructive pulmonary disease with (acute) lower respiratory infection; J96.11 Chronic respiratory failure with hypoxia; L03.116 Cellulitis of left lower limb; I89.0 Lymphedema, not elsewhere classified; E66.01 Morbid (severe) obesity due to excess calories; R62.7 Adult failure to thrive; G83.89 Other specified paralytic syndromes; M79.3 Panniculitis, unspecified; E11.9 Type 2 diabetes mellitus without complications; E78.5 Hyperlipidemia, unspecified; H35.30 Unspecified macular degeneration; I27.81 Cor pulmonale (chronic); M19.90 Unspecified osteoarthritis, unspecified site; M54.2 Cervicalgia; M54.9 Dorsalgia, unspecified; G89.29 Other chronic pain; I50.9 Heart failure, unspecified; K21.9 Gastro-esophageal reflux disease without esophagitis; Z99.81 Dependence on supplemental oxygen; Z98.49 Cataract extraction status, unspecified eye; Z23 Encounter for immunization; Z88.8 Allergy status to other drugs, medicaments and biological substances; Z79.899 Other long term (current) drug therapy; Z99.3 Dependence on wheelchair; Z87.891 Personal history of nicotine dependence; Z80.3 Family history of malignant neoplasm of breast
CPT/HCPCS: 36415; 71045; 80053; 80061; 81003; 82550; 82948; 83605; 83735; 83880; 84145; 84484; 85025; 87040; 87070; 93005; 94640; 94760; 96361; 96365; 96375; 97110; 97161; 97530; 99285; J0456; J0690; J0696; J1650; J2270; J2405; J2765; J2930

== ENCOUNTER 2019-02-07 16:41 | Emergency (ER) | payer MEDICARE, BC ==
[~2019-02-07] VITALS: Ht 162.6 cm; Wt 138.0 kg
[~2019-02-07 16:41] MED LIST changes: -CA C1TAB58 PO; +CHOL10002 PO; +DOCU-264 PO; +EYE VITAMIN; -HYDR-3965 PO; +HYDR-3972 PO; +LACT1CAP65 PO; -LOPE-155; -RANI150T44 PO; +SIMV20TA5 PO; -SIMV40TA4 PO; -TETR15DR85; -VIT1CAPS12 PO
[2019-02-07] MEDS ORDERED: ondansetron 4mg rapidly disintigrating tab PO ONE (17:05)
[2019-02-07] MEDS ORDERED: sulfamethoxazole/trimethoprim DS (800/160mg) tablet PO ONE (17:05)
[2019-02-07 17:52] LABS: PARTIAL THROMBOPLASTIN TIME 31 SECONDS (22-32)
[2019-02-07 17:57] LABS: BASOPHILS % (AUTO) 0.7 % (0-1); EOSINOPHILS # (AUTO) 0.1 X10'3 (0-0.9); EOSINOPHILS % (AUTO) 2.1 % (0-6); HEMATOCRIT 35.4 % (35.0-45.0); HEMOGLOBIN 11.8 g/dl (12.0-16.0); LYMPHOCYTES # (AUTO) 1.8 X10'3 (1.1-4.8); LYMPHOCYTES % (AUTO) 26.6 % (21-51); MEAN CORPUSCULAR HEMOGLOBIN 32.5 PG (27.0-31.0); MEAN CORPUSCULAR HGB CONC 33.4 g/dL (33.0-36.5); MEAN CORPUSCULAR VOLUME 97.3 FL (78-98); MEAN PLATELET VOLUME 7.6 FL (7.4-10.4); MONOCYTES # (AUTO) 0.6 X10'3 (0-0.9); MONOCYTES % (AUTO) 9.6 % (2-12); NEUTROPHILS # (AUTO) 4.1 X10'3 (1.8-7.7); PLATELET COUNT 210 X10'3 (140-440); RED BLOOD COUNT 3.63 X10'6 (4.20-5.60); RED CELL DISTRIBUTION WIDTH 14.2 % (11.5-14.5); WHITE BLOOD COUNT 6.7 X10'3 (4.5-11.0)
[2019-02-07 18:24] LABS: ALANINE AMINOTRANSFERASE 22 U/L (12-78); ALBUMIN 3.1 G/DL (3.4-5.0); ALBUMIN/GLOBULIN RATIO 0.7 (1.1-1.5); ALKALINE PHOSPHATASE 81 IU/L (46-116); ANION GAP 5 (8-16); ASPARTATE AMINO TRANSFERASE 17 U/L (10-37); BILIRUBIN,TOTAL 0.4 MG/DL (0.1-1.0); BLOOD UREA NITROGEN 22 MG/DL (7-18); BUN/CREATININE RATIO 26.5 (6.6-38.0); CALCIUM 9.9 MG/DL (8.5-10.1); CHLORIDE 104 MMOL/L (99-107); CREATININE 0.83 MG/DL (0.40-0.90); GLUCOSE 90 MG/DL (70-104); SODIUM 143 MMOL/L (135-145); TOTAL CARBON DIOXIDE 34.2 MMOL/L (24-32); TOTAL PROTEIN 7.5 G/DL (6.4-8.2); eGFR 66 ML/MIN
[2019-02-07] MEDS ORDERED: SULF1TAB49 PO (18:45)
[2019-02-07] MEDS ORDERED: bacitracin 15gm ointment TP ONE (18:45)
[2019-02-07] MEDS ORDERED: VIT1CAPS9 PO (19:31)
[2019-02-07 21:37] VITALS: BP 153/71
== END 2019-02-07 23:56 | disposition home or self-care (01) ==
LOC: ER 16:42
DX: L03.116 Cellulitis of left lower limb (principal); L03.115 Cellulitis of right lower limb; E66.9 Obesity, unspecified; E11.9 Type 2 diabetes mellitus without complications; M19.90 Unspecified osteoarthritis, unspecified site; Z88.6 Allergy status to analgesic agent; Z79.899 Other long term (current) drug therapy
CPT/HCPCS: 36415; 80053; 83605; 84145; 85025; 85610; 85730; 87040; 99284; J2405

== ENCOUNTER 2020-06-08 03:18 | Inpatient (IN) | payer MEDICARE, BC ==
[~2020-06-08] VITALS: Ht 162.6 cm; Wt 132.2 kg
[~2020-06-08 03:18] MED LIST changes: +APIX5TAB3 PO; +ATOR20TA66 PO; -EYE VITAMIN; +FURO-149 PO; -HYDR-3972 PO; -LACT1CAP65 PO; +NYSPWD TP; -OXYB5TAB11 PO; +POTA10TA36 PO; -SIMV20TA5 PO; +VIT1CAPS9 PO; +WOOL454C TP
[2020-06-08] MEDS ORDERED: furosemide 40mg/4ml inj IV ONE (03:40)
[2020-06-08 03:50] LABS: BASOPHILS # (AUTO) 0.1 X10'3 (0-0.2); BASOPHILS % (AUTO) 0.8 % (0-1); EOSINOPHILS # (AUTO) 0.3 X10'3 (0-0.9); EOSINOPHILS % (AUTO) 3.3 % (0-6); HEMATOCRIT 32.9 % (35.0-45.0); HEMOGLOBIN 10.5 g/dl (12.0-16.0); LYMPHOCYTES # (AUTO) 3.1 X10'3 (1.1-4.8); LYMPHOCYTES % (AUTO) 31.7 % (21-51); MEAN CORPUSCULAR HEMOGLOBIN 31.6 PG (27.0-31.0); MEAN CORPUSCULAR HGB CONC 31.9 g/dL (33.0-36.5); MEAN CORPUSCULAR VOLUME 99.1 FL (78-98); MEAN PLATELET VOLUME 7.7 FL (7.4-10.4); MONOCYTES % (AUTO) 10.2 % (2-12); NEUTROPHILS # (AUTO) 5.3 X10'3 (1.8-7.7); PLATELET COUNT 287 X10'3 (140-440); RED BLOOD COUNT 3.32 X10'6 (4.20-5.60); RED CELL DISTRIBUTION WIDTH 16.6 % (11.5-14.5); WHITE BLOOD COUNT 9.9 X10'3 (4.5-11.0)
[2020-06-08 03:59] LABS: PARTIAL THROMBOPLASTIN TIME 29 SECONDS (22-32)
[2020-06-08 04:02] LABS: CLARITY,URINE SLIGHTLY CLOUDY (Clear); COLOR,URINE AMBER (Yellow); GLUCOSE, URINE NEGATIVE (Neg); KETONES,URINE TRACE mg/dl (Neg); LEUKOCYTE ESTERASE ,URINE TRACE (Neg); NITRITES, URINE NEGATIVE (Neg); OCCULT BLOOD,URINE LARGE (Neg); PH,URINE 5.5 (4.8-8.0); PROTEIN,URINE 100 mg/dl (Neg); UA COLLECTION TYPE FOLEY CATH; UROBILINOGEN,URINE 0.2 E.U/dL (0.2-1.0)
[2020-06-08 04:08] LABS: ALANINE AMINOTRANSFERASE 11 U/L (12-78); ALBUMIN 2.6 G/DL (3.4-5.0); ALBUMIN/GLOBULIN RATIO 0.6 (1.1-1.5); ALKALINE PHOSPHATASE 67 IU/L (46-116); ANION GAP 0 (8-16); ASPARTATE AMINO TRANSFERASE 17 U/L (10-37); BILIRUBIN,TOTAL 0.3 MG/DL (0.1-1.0); BLOOD UREA NITROGEN 21 MG/DL (7-18); BUN/CREATININE RATIO 26.9 (6.6-38.0); CALCIUM 9.6 MG/DL (8.5-10.1); CHLORIDE 103 MMOL/L (99-107); CREATININE 0.78 MG/DL (0.40-0.90); GLUCOSE 84 MG/DL (70-104); POTASSIUM 4.4 MMOL/L (3.5-5.1); SODIUM 146 MMOL/L (135-145); eGFR 71 ML/MIN
[2020-06-08 04:09] LABS: RBC,URINE 20-50 /HPF (0-2)
[2020-06-08 04:10] LABS: BACTERIA,URINE 2+ /HPF (Neg); MUCUS STRANDS NONE SEEN /LPF (Neg); SQUAMOUS EPITHELIAL CELL,UR NONE SEEN /LPF (FEW); YEAST MANY /HPF (NEGATIVE)
[2020-06-08] MEDS: HYDROcodone/acetaminophen 5mg/325mg tablet PO ONE ×2 (04:10→04:15)
[2020-06-08 04:12] LABS: TOTAL CARBON DIOXIDE 43.1 MMOL/L (24-32)
--- NOTE | 2020-06-08 04:25 | NUR ---
PT IS NOT COOPERATIVE WITH CARE AND HAS BEEN VERY RUDE AND DEMANDING WITH MY STAFF. ON MORE THAN ONE OCCASION I HAVE HAD TO ASK PT TO TREAT US WITH RESPECT. SHE IS YELLING OUT THAT SHE CAN'T BREATHE AND IS IN PAIN. SHE HAS LASIX ORDERED WELL NORCO FOR PAIN. SHE INITIALLY REFUSED THE LASIX BUT THEN AGREED TO TAKE IT. WHEN THE PRIMARY RN GAVE HER NORCO FOR PAIN SHE SPIT THE PILLS BACK OUT AND DEMANDED "A SHOT" - AWARE
--- NOTE | 2020-06-08 04:27 | NUR ---
PT UNCOOPERATIVE WITH CARE. ON ASSESSMENT PT IS REQUESTING PAIN MEDICATIONS. MED ORDERED BY MD. PT THEN REFUSED MEDICATION. EKG PEFORMED AND PT CHANGED HER MIND AND AGREED TO TAKE MEDICATIONS FOR PAIN. PT THEN PROCEEDED TO SPIT PILL OUT OF MOUTH AFTER DECIDING IN THE MOMENT THAT SHE "DOESN'T TRUST" IT. PT EDUCATED THAT IT WAS ORDERED TO REDUCE PAIN. PT CONTINUES TO REFUSE MED.
--- NOTE | 2020-06-08 04:31 | NUR ---
BILATERAL LEG SWELLING, WITH SIGNIFICANT SCABBING. BILATERAL PEDAL PULSES PRESENT.
[2020-06-08 04:56] LABS: ABG HCO3 43.1 mmol/L (22.0-26.0); ABG OXYGEN SATURATION 96.2 % (94-97); ABG PCO2 (T) 69.3 mmHg (32.0-45.0); ABG PO2 (T) 72.3 mmHg (75.0-100.0); ALLEN'S TEST POSITIVE; FCOHb 0.8 % (0.0-3.9); FMetHb 0.1 % (0.0-1.5); FO2Hb 95.3 % (94-97); PATIENT TEMPERATURE 36.6
--- NOTE | 2020-06-08 05:10 | NUR ---
Pt uncooperative and immediately began pulling at bipap mask when it was placed on her.
[2020-06-08] MEDS ORDERED: ondansetron/PF 4mg/2ml inj IV ONE (09:45)
[2020-06-08] MEDS ORDERED: morphine 4 MG/ML inj SYRINge IV ONE (09:45)
[2020-06-08] MEDS ORDERED: acetaminophen 325mg tablet PO PRN (09:55)
[2020-06-08] MEDS ORDERED: magnesium 4gm in 100ml NS 100 ML IV PRN (09:55)
[2020-06-08] MEDS ORDERED: potassium Cl 20 mEq SR tablet PO PRN ×2 (09:55)
[2020-06-08] MEDS ORDERED: ondansetron 4mg rapidly disintigrating tab PO PRN (09:55)
[2020-06-08] MEDS ORDERED: levoFLOXACIN-Levaquin 750MG/D5 150 ML IV STA (09:55)
[2020-06-08] MEDS ORDERED: HYDROmorphone 1 mg/ml syringe IV PRN (09:55)
[2020-06-08] MEDS ORDERED: ipratropium/albuterol 3ml nebule NEB PRN (09:55)
[2020-06-08] MEDS ORDERED: potassium CL 10mEq/100ml bag 100 ML IV PRN ×2 (09:55)
[2020-06-08] MEDS ORDERED: magnesium 2GM in 50ml NS 50 ML IV PRN (09:55)
--- NOTE | 2020-06-08 10:08 | NUR ---
Patient declines morphine and zofran and states, "Don't hurt."
[2020-06-08] MEDS: fluconazole-Diflucan 200mg/NS 100 ML IV SCH (10:15)
[2020-06-08] MEDS ORDERED: NO HOME MEDS (11:32)
[2020-06-08] MEDS: methylPREDNISolone sod succ/PF 40mg inj. IV SCH ×2 (13:00→21:26)
[2020-06-08 17:00] VITALS: BP 140/50
[2020-06-08 18:00] LABS: ABG BASE EXCESS 14.3 mmol/L (-2.0-2.0); ABG HCO3 41.8 mmol/L (22.0-26.0); ABG OXYGEN SATURATION 96.9 % (94-97); ABG PCO2 (T) 68.4 mmHg (32.0-45.0); ABG PO2 (T) 90.5 mmHg (75.0-100.0); ALLEN'S TEST POSITIVE; FLOW 4 L/min; FMetHb 0.3 % (0.0-1.5); FO2Hb 96.6 % (94-97); TOTAL HEMOGLOBIN 11.8 G/dl (12.0-16.0)
[2020-06-08 18:31] VITALS: BP 126/43
--- NOTE | 2020-06-08 18:36 | NUR ---
Problems reprioritized. Patient report given, questions answered & plan of care reviewed with Marj Daily.
[2020-06-08] MEDS: K and/or MAG REPLACEMENT MC SCH (20:00)
[2020-06-08] MEDS: apixaban 5mg tablet PO SCH (21:26)
[2020-06-08] MEDS: docusate sod 100mg capsule PO SCH (21:26)
[2020-06-08 22:00] VITALS: BP 152/58
[2020-06-09 02:00] VITALS: BP 161/60
[2020-06-09 05:27] LABS: BASOPHILS % (AUTO) 0.3 % (0-1); EOSINOPHILS % (AUTO) 0 % (0-6); HEMOGLOBIN 10.7 g/dl (12.0-16.0); LYMPHOCYTES # (AUTO) 0.8 X10'3 (1.1-4.8); LYMPHOCYTES % (AUTO) 7.9 % (21-51); MEAN CORPUSCULAR HEMOGLOBIN 31.5 PG (27.0-31.0); MEAN CORPUSCULAR HGB CONC 32.4 g/dL (33.0-36.5); MEAN CORPUSCULAR VOLUME 97.4 FL (78-98); MEAN PLATELET VOLUME 7.8 FL (7.4-10.4); MONOCYTES # (AUTO) 0.1 X10'3 (0-0.9); MONOCYTES % (AUTO) 1.2 % (2-12); NEUTROPHILS # (AUTO) 9.5 X10'3 (1.8-7.7); NEUTROPHILS % (AUTO) 90.6 % (42-75); PLATELET COUNT 274 X10'3 (140-440); RED BLOOD COUNT 3.39 X10'6 (4.20-5.60); RED CELL DISTRIBUTION WIDTH 16.4 % (11.5-14.5); WHITE BLOOD COUNT 10.5 X10'3 (4.5-11.0)
[2020-06-09 05:47] LABS: ALANINE AMINOTRANSFERASE 10 U/L (12-78); ALBUMIN 2.4 G/DL (3.4-5.0); ALBUMIN/GLOBULIN RATIO 0.5 (1.1-1.5); ALKALINE PHOSPHATASE 63 IU/L (46-116); ANION GAP 5 (8-16); ASPARTATE AMINO TRANSFERASE 27 U/L (10-37); BILIRUBIN,TOTAL 0.3 MG/DL (0.1-1.0); BLOOD UREA NITROGEN 25 MG/DL (7-18); BUN/CREATININE RATIO 33.8 (6.6-38.0); CALCIUM 9.6 MG/DL (8.5-10.1); CHLORIDE 99 MMOL/L (99-107); CREATININE 0.74 MG/DL (0.40-0.90); GLUCOSE 112 MG/DL (70-104); MAGNESIUM 1.9 MG/DL (1.5-2.4); POTASSIUM 4.6 MMOL/L (3.5-5.1); SODIUM 142 MMOL/L (135-145); TOTAL CARBON DIOXIDE 38.3 MMOL/L (24-32); TOTAL PROTEIN 6.8 G/DL (6.4-8.2); eGFR 75 ML/MIN
--- NOTE | 2020-06-09 06:14 | NUR ---
Patient in room MED 317. I have received report from SOHAN GARZA and had the opportunity to ask questions and assume patient care.
--- NOTE | 2020-06-09 06:16 | NUR ---
Problems reprioritized. Patient report given, questions answered & plan of care reviewed with Linda GARZA.
--- NOTE | 2020-06-09 06:29 | NUR ---
Patient in room MED 317. I have received report from Marj COLLINS RN and had the opportunity to ask questions and assume patient care.
[2020-06-09] MEDS: apixaban 5mg tablet PO SCH ×2 (07:18→21:36)
[2020-06-09] MEDS: docusate sod 100mg capsule PO SCH ×2 (07:18→21:52)
[2020-06-09] MEDS: methylPREDNISolone sod succ/PF 40mg inj. IV SCH ×4 (07:23→22:39)
[2020-06-09] MEDS: fluconazole-Diflucan 200mg/NS 100 ML IV SCH (07:23)
[2020-06-09 07:34] VITALS: BP 136/78
[2020-06-09] MEDS: K and/or MAG REPLACEMENT MC SCH ×2 (08:00→21:52)
[2020-06-09 10:00] VITALS: BP 110/31
[2020-06-09] MEDS: levoFLOXACIN 750MG TABLET PO SCH (10:50)
--- NOTE | 2020-06-09 11:33 | NUR ---
Lonnie consult: Pt presented to ER with c/o SOB, previously discharged with CHF. Pt admitted for acute metabolic encephalopathy secondary to hypercapnia secondary to COPD exacerbation, per H&P. Noted Lonnie of 10, with small open area on L side under breast and small open area around rectum d/t chronic stasis dermatitis of the lower extremities with candidal/tenia infection wound. Per skin assessment, macerations under left breast and dry flaky skin wound over bilat LE. Pt PO intake currently 25% on clear liquid diet. Discussed with nurse about diet advancement, will discuss with doctor during rounds. Recommend advancing to heart healthy diet as medically indicated given previous CHF hx. Will continue to monitor for additional protein needs. Recs: 1) Advance diet to heart healthy as medically indicated 2) MVI for wound healing, pending C note 3) Bowel care per Rx 4) Scaled wt per Rx Addendum: 06/09/20 at [address] Amended: Links added. Addendum: 06/09/20 at [address] RD agree with internal communications specialist note
--- NOTE | 2020-06-09 12:36 | NUR ---
Unable to DART patient as she is intermittently confused, thinks the RN is a robot and stated "I do not want to answer any questions right now, I just want to sleep". Will continue to monitor the patient closely.
[2020-06-09] MEDS: HYDROmorphone inj. 0.5 MG/0.5 ML DISP.SYRIN IV PRN ×3 (13:35→22:39)
[2020-06-09 15:00] VITALS: BP 114/79
--- NOTE | 2020-06-09 18:28 | NUR ---
Problems reprioritized. Patient report given, questions answered & plan of care reviewed with Mitchell GARZA.
--- NOTE | 2020-06-09 20:11 | NUR ---
ok to give info to siobhan Skaggs per patient.
[2020-06-09 20:45] VITALS: BP 129/51
[2020-06-09] MEDS: mineral oil/petrolatum, white cream 113gm jar TP SCH (21:36)
[2020-06-09] MEDS: nystatin 15 GM powder TP SCH (21:38)
[2020-06-09] MEDS: lactobacillus rhamnosus 10,000 MMU CELLS/CAPSULE PO SCH (21:52)
--- NOTE | 2020-06-09 21:57 | NUR ---
pt's iv infiltrated and leaking. attempting to restart. pt is a very hard stick b/c of obesity
[2020-06-09 22:00] VITALS: BP 146/59
[2020-06-10 01:59] VITALS: BP 133/51
--- NOTE | 2020-06-10 02:37 | NUR ---
pt has bruising bliateral ischium. open area at coccyx with bleeding. open areas in cracks of bilateral breasts and pannus fold. bilateral legs cracked, dry, open fissures of skin in shins to feet. pt has large bruises on upper arms/shoulders. eucerin applied to legs. nystatin to folds. Addendum: 06/10/20 at 0238 by Mitchell Botello RN Amended: Links added.
--- NOTE | 2020-06-10 03:09 | NUR ---
PT STATED THAT HER TEETH WERE TAKEN OUT ON LAST ADMIT AND SHE NEVER GOT THEM BACK. SHE STATED THIS IS WHY SHE CAN'T EAT
[2020-06-10 05:59] LABS: BASOPHILS % (AUTO) 0.1 % (0-1); EOSINOPHILS % (AUTO) 0 % (0-6); HEMATOCRIT 32.9 % (35.0-45.0); HEMOGLOBIN 10.8 g/dl (12.0-16.0); LYMPHOCYTES # (AUTO) 0.8 X10'3 (1.1-4.8); LYMPHOCYTES % (AUTO) 5.9 % (21-51); MEAN CORPUSCULAR HGB CONC 32.7 g/dL (33.0-36.5); MEAN CORPUSCULAR VOLUME 98.1 FL (78-98); MONOCYTES # (AUTO) 0.5 X10'3 (0-0.9); NEUTROPHILS # (AUTO) 11.7 X10'3 (1.8-7.7); PLATELET COUNT 309 X10'3 (140-440); RED BLOOD COUNT 3.36 X10'6 (4.20-5.60); RED CELL DISTRIBUTION WIDTH 16.6 % (11.5-14.5)
[2020-06-10 06:18] LABS: ALANINE AMINOTRANSFERASE 15 U/L (12-78); ALBUMIN 2.5 G/DL (3.4-5.0); ALBUMIN/GLOBULIN RATIO 0.6 (1.1-1.5); ALKALINE PHOSPHATASE 59 IU/L (46-116); ANION GAP 4 (8-16); ASPARTATE AMINO TRANSFERASE 23 U/L (10-37); BILIRUBIN,TOTAL 0.3 MG/DL (0.1-1.0); BLOOD UREA NITROGEN 32 MG/DL (7-18); BUN/CREATININE RATIO 36.8 (6.6-38.0); CALCIUM 9.6 MG/DL (8.5-10.1); CHLORIDE 103 MMOL/L (99-107); CREATININE 0.87 MG/DL (0.40-0.90); GLUCOSE 103 MG/DL (70-104); POTASSIUM 4.3 MMOL/L (3.5-5.1); SODIUM 147 MMOL/L (135-145); TOTAL PROTEIN 6.8 G/DL (6.4-8.2); eGFR 62 ML/MIN
--- NOTE | 2020-06-10 06:29 | NUR ---
reported to days. noted patient noncompliant with eating and medications. sips of water.
[2020-06-10] MEDS: K and/or MAG REPLACEMENT MC SCH ×2 (08:00→20:00)
[2020-06-10] MEDS: docusate sod 100mg capsule PO SCH ×2 (09:57→20:50)
[2020-06-10] MEDS: lactobacillus rhamnosus 10,000 MMU CELLS/CAPSULE PO SCH ×2 (09:57→20:50)
[2020-06-10] MEDS: apixaban 5mg tablet PO SCH ×2 (09:57→20:50)
[2020-06-10] MEDS: furosemide 40mg/4ml inj IV SCH ×2 (09:57→20:50)
[2020-06-10] MEDS: methylPREDNISolone sod succ/PF 40mg inj. IV SCH ×3 (09:57→20:49)
[2020-06-10] MEDS: levoFLOXACIN 750MG TABLET PO SCH (09:57)
[2020-06-10] MEDS: fluconazole-Diflucan 200mg/NS 100 ML IV SCH (09:57)
[2020-06-10] MEDS: nystatin 15 GM powder TP SCH ×2 (09:58→20:50)
[2020-06-10] MEDS: mineral oil/petrolatum, white cream 113gm jar TP SCH ×2 (09:58→20:51)
[2020-06-10 19:00] VITALS: BP 138/55
[2020-06-10 23:00] VITALS: BP 139/61
[2020-06-11 03:00] VITALS: BP 146/53
[2020-06-11 06:03] LABS: BASOPHILS % (AUTO) 0.1 % (0-1); EOSINOPHILS % (AUTO) 0 % (0-6); HEMATOCRIT 32.8 % (35.0-45.0); HEMOGLOBIN 10.7 g/dl (12.0-16.0); LYMPHOCYTES # (AUTO) 0.5 X10'3 (1.1-4.8); LYMPHOCYTES % (AUTO) 4.6 % (21-51); MEAN CORPUSCULAR HEMOGLOBIN 31.9 PG (27.0-31.0); MEAN CORPUSCULAR HGB CONC 32.6 g/dL (33.0-36.5); MEAN CORPUSCULAR VOLUME 97.9 FL (78-98); MONOCYTES # (AUTO) 0.3 X10'3 (0-0.9); MONOCYTES % (AUTO) 3.1 % (2-12); NEUTROPHILS # (AUTO) 10.1 X10'3 (1.8-7.7); NEUTROPHILS % (AUTO) 92.2 % (42-75); PLATELET COUNT 295 X10'3 (140-440); RED BLOOD COUNT 3.35 X10'6 (4.20-5.60); RED CELL DISTRIBUTION WIDTH 16.6 % (11.5-14.5); WHITE BLOOD COUNT 10.9 X10'3 (4.5-11.0)
[2020-06-11 06:17] LABS: ALANINE AMINOTRANSFERASE 17 U/L (12-78); ALBUMIN 2.6 G/DL (3.4-5.0); ALBUMIN/GLOBULIN RATIO 0.6 (1.1-1.5); ALKALINE PHOSPHATASE 55 IU/L (46-116); ANION GAP 2 (8-16); ASPARTATE AMINO TRANSFERASE 22 U/L (10-37); BILIRUBIN,TOTAL 0.3 MG/DL (0.1-1.0); BLOOD UREA NITROGEN 36 MG/DL (7-18); BUN/CREATININE RATIO 41.9 (6.6-38.0); CALCIUM 9.3 MG/DL (8.5-10.1); CHLORIDE 103 MMOL/L (99-107); CREATININE 0.86 MG/DL (0.40-0.90); GLUCOSE 122 MG/DL (70-104); POTASSIUM 3.5 MMOL/L (3.5-5.1); SODIUM 148 MMOL/L (135-145); TOTAL PROTEIN 6.8 G/DL (6.4-8.2); eGFR 63 ML/MIN
[2020-06-11 06:23] LABS: TOTAL CARBON DIOXIDE 42.9 MMOL/L (24-32)
--- NOTE | 2020-06-11 06:33 | NUR ---
Problems reprioritized. Patient report given, questions answered & plan of care reviewed with KAYLA Maravilla.
--- NOTE | 2020-06-11 06:43 | NUR ---
Patient in room MED 317. I have received report from KAYLA Luque and had the opportunity to ask questions and assume patient care.
--- NOTE | 2020-06-11 07:36 | NUR ---
PAGER ID: [phone] MESSAGE: [phone]: Radha Herman: FYI pt CO2 increased from 40.0 to 42.9 -tomasz [phone]
[2020-06-11] MEDS: methylPREDNISolone sod succ/PF 40mg inj. IV SCH ×3 (08:01→20:32)
[2020-06-11] MEDS: levoFLOXACIN-Levaquin 750MG/D5 150 ML IV SCH (08:01)
[2020-06-11] MEDS: furosemide 40mg/4ml inj IV SCH ×2 (08:02→20:39)
[2020-06-11] MEDS: lactobacillus rhamnosus 10,000 MMU CELLS/CAPSULE PO SCH ×2 (08:02→20:34)
[2020-06-11] MEDS: fluconazole 100mg tablet PO SCH (08:02)
[2020-06-11] MEDS: docusate sod 100mg capsule PO SCH ×2 (08:02→20:34)
[2020-06-11] MEDS: apixaban 5mg tablet PO SCH ×2 (08:03→20:34)
[2020-06-11] MEDS: K and/or MAG REPLACEMENT MC SCH ×2 (08:03→20:00)
[2020-06-11] MEDS: nystatin 15 GM powder TP SCH ×2 (08:13→20:30)
[2020-06-11] MEDS: mineral oil/petrolatum, white cream 113gm jar TP SCH ×2 (08:13→20:31)
[2020-06-11 11:00] VITALS: BP 121/47
[2020-06-11 18:00] VITALS: BP 124/46
--- NOTE | 2020-06-11 18:00 | NUR ---
Patient in room MED 317. I have received report from Ruth GARZA and had the opportunity to ask questions and assume patient care.
--- NOTE | 2020-06-11 18:13 | NUR ---
Problems reprioritized. Patient report given, questions answered & plan of care reviewed with KAYLA Mcmahan.
--- NOTE | 2020-06-11 20:21 | NUR ---
Please set up BIPAP for evelyn emmanuel Cynthia [phone] [facility]E
--- NOTE | 2020-06-11 20:29 | NUR ---
317A RT requested New/Updated order for evelyn LI Marj AISHWARYA 8263 Addendum: 06/11/20 at 2028 by Marj Jackson RN sent to pager [phone] MARÍA
--- NOTE | 2020-06-11 21:00 | NUR ---
pATIENT STARTED ON bIPAP AT APPROXIMATELY 2130; PPATIENT ON IT FOR 10 MINUTES, DID NOT TOLERATE IT AT THIS TIME, RESUMED 2L NC
[2020-06-11 22:00] VITALS: BP 139/59
[2020-06-12] VITALS (7 sets, daily range): BP systolic 107–144; BP diastolic 48–90
[2020-06-12] MEDS: traMADol 50MG tablet PO PRN ×4 (00:48→22:11)
--- NOTE | 2020-06-12 01:45 | NUR ---
Patient placed on Bipap at this time, 35%, 05/01. Will continue to monitor.
--- NOTE | 2020-06-12 06:30 | NUR ---
Patient in room PCU 3017. I have received report from Marj GARZA and had the opportunity to ask questions and assume patient care.
--- NOTE | 2020-06-12 06:30 | NUR ---
Patient in room MED 317. I have received report from Marj GARZA and had the opportunity to ask questions and assume patient care.
[2020-06-12 06:42] LABS: BASOPHILS % (AUTO) 0.1 % (0-1); EOSINOPHILS % (AUTO) 0 % (0-6); HEMOGLOBIN 10.8 g/dl (12.0-16.0); LYMPHOCYTES # (AUTO) 0.4 X10'3 (1.1-4.8); LYMPHOCYTES % (AUTO) 3.5 % (21-51); MEAN CORPUSCULAR HEMOGLOBIN 31.3 PG (27.0-31.0); MEAN CORPUSCULAR HGB CONC 32.6 g/dL (33.0-36.5); MEAN CORPUSCULAR VOLUME 96.1 FL (78-98); MEAN PLATELET VOLUME 8.3 FL (7.4-10.4); MONOCYTES # (AUTO) 0.5 X10'3 (0-0.9); MONOCYTES % (AUTO) 4.2 % (2-12); NEUTROPHILS # (AUTO) 9.9 X10'3 (1.8-7.7); NEUTROPHILS % (AUTO) 92.2 % (42-75); PLATELET COUNT 290 X10'3 (140-440); RED BLOOD COUNT 3.44 X10'6 (4.20-5.60); RED CELL DISTRIBUTION WIDTH 16.1 % (11.5-14.5); WHITE BLOOD COUNT 10.7 X10'3 (4.5-11.0)
[2020-06-12 07:12] LABS: ALANINE AMINOTRANSFERASE 21 U/L (12-78); ALBUMIN 2.6 G/DL (3.4-5.0); ALBUMIN/GLOBULIN RATIO 0.7 (1.1-1.5); ALKALINE PHOSPHATASE 53 IU/L (46-116); ASPARTATE AMINO TRANSFERASE 28 U/L (10-37); BILIRUBIN,TOTAL 0.3 MG/DL (0.1-1.0); BLOOD UREA NITROGEN 38 MG/DL (7-18); BUN/CREATININE RATIO 42.7 (6.6-38.0); CALCIUM 9.1 MG/DL (8.5-10.1); CHLORIDE 100 MMOL/L (99-107); CREATININE 0.89 MG/DL (0.40-0.90); GLUCOSE 148 MG/DL (70-104); MAGNESIUM 1.8 MG/DL (1.5-2.4); SODIUM 149 MMOL/L (135-145); TOTAL PROTEIN 6.6 G/DL (6.4-8.2); eGFR 61 ML/MIN
--- NOTE | 2020-06-12 07:24 | NUR ---
Dr. Guillaume paged: PAGER ID: [phone] MESSAGE: [phone]: SLAVA - can we send to ortho with tele monitor? [facility] needs room for TAVR/CABG patients. thank you nurse Nataly [phone]
[2020-06-12 07:29] LABS: ANION GAP 1 (8-16)
[2020-06-12 07:32] LABS: TOTAL CARBON DIOXIDE 47.6 MMOL/L (24-32)
[2020-06-12] MEDS ORDERED: potassium CL 10mEq/100ml bag 100 ML IV PRN (07:35)
[2020-06-12] MEDS ORDERED: magnesium 4gm in 100ml NS 100 ML IV PRN (07:35)
[2020-06-12] MEDS ORDERED: potassium Cl 20 mEq SR tablet PO PRN (07:35)
[2020-06-12] MEDS ORDERED: magnesium Cl slow-release 64mg tablet PO PRN (07:35)
[2020-06-12] MEDS: mineral oil/petrolatum, white cream 113gm jar TP SCH ×2 (08:00→19:53)
[2020-06-12] MEDS: K and/or MAG REPLACEMENT MC SCH ×2 (08:00→19:53)
--- NOTE | 2020-06-12 09:34 | NUR ---
Called to receive report from KAYLA [place]. KAYLA Luque informed me that primary RN is busy assuming pt care and she'll have Valencia call me back.
[2020-06-12] MEDS: potassium Cl 20 mEq SR tablet PO PRN ×2 (09:41→14:59)
[2020-06-12] MEDS: furosemide 40mg/4ml inj IV SCH ×2 (09:41→19:52)
[2020-06-12] MEDS: docusate sod 100mg capsule PO SCH ×2 (09:41→19:52)
[2020-06-12] MEDS: lactobacillus rhamnosus 10,000 MMU CELLS/CAPSULE PO SCH ×2 (09:41→19:51)
[2020-06-12] MEDS: nystatin 15 GM powder TP SCH ×2 (09:42→19:52)
[2020-06-12] MEDS: levoFLOXACIN-Levaquin 750MG/D5 150 ML IV SCH (09:42)
[2020-06-12] MEDS: apixaban 5mg tablet PO SCH ×2 (09:42→19:52)
[2020-06-12] MEDS: methylPREDNISolone sod succ/PF 40mg inj. IV SCH ×2 (09:45→13:07)
--- NOTE | 2020-06-12 09:52 | NUR ---
Patient in room MED 317. I have received report from KAYLA [place] and had the opportunity to ask questions, awaiting pt's arrival from the [facility] unit.
--- NOTE | 2020-06-12 10:00 | NUR ---
Report called to PCU Nurse Arabella. Told her we were cleaning her, changing linens and were going to give a perdomo catheter due to leaking. Called pharmacy about Diflucan still not delivered and to send it to PCU. Nurse has messaged pharmacy about this quite some time ago and they said they would bring it immediately.
--- NOTE | 2020-06-12 10:30 | NUR ---
Patient arrived from [facility] unit on bariatric bed. Alert and oriented to room, BLL, SRx2, CL within reach. First set of vitals complete.
--- NOTE | 2020-06-12 10:30 | NUR ---
Pt's catheter was leaking urine and not draining well. Old perdomo removed and pt tolerated well. New Perdomo 18 gauge 10cc of sterile water for the balloon placed using sterile technique. Immediate return for very clear very pale yellow urine. Pt tolerated well. Pt was bathed with warm comfort bath clothes. All new linens placed. Heels floated. Pt was then ready for transfer room 301. She was taken there on her bed and her new nurse Delmy RN was getting het on their monitors ect in PCU.
[2020-06-12] MEDS ORDERED: levoFLOXACIN 750MG TABLET PO SCH (11:00)
--- NOTE | 2020-06-12 11:05 | NUR ---
Problems reprioritized. Patient report given, questions answered & plan of care reviewed with Arabella GARZA PCU.
--- NOTE | 2020-06-12 11:10 | NUR ---
Patient in room PCU 3017. I have received report from Arabella Merino RN and had the opportunity to ask questions and assume patient care.
--- NOTE | 2020-06-12 11:10 | NUR ---
Problems reprioritized. Patient report given, questions answered & plan of care reviewed with KAYLA Roberson.
[2020-06-12] MEDS: fluconazole 100mg tablet PO SCH (13:07)
--- NOTE | 2020-06-12 14:05 | NUR ---
patient asked to put on bipap to help blow off CO2 and she refused . PT educated about respiratory repercussions of retaining too much CO2. PT states I'm not putting it on right now but we will take it step by step .
[2020-06-12] MEDS ORDERED: POTASSIUM BICARB 20meq eff tab 20 MEQ TABLET.EFF PO PRN ×2 (15:09→15:10)
--- NOTE | 2020-06-12 18:29 | NUR ---
Problems reprioritized. Patient report given, questions answered & plan of care reviewed with Alisha GARZA.
--- NOTE | 2020-06-12 18:55 | NUR ---
Patient in room PCU 3017. I have received report from Aziza GARZA and had the opportunity to ask questions and assume patient care.
--- NOTE | 2020-06-12 22:11 | NUR ---
Mobile computers being serviced, ultram administered.
[2020-06-13 02:00] VITALS: BP 94/65
[2020-06-13 06:00] VITALS: BP 120/67
[2020-06-13 06:16] LABS: BASOPHILS % (AUTO) 0 % (0-1); EOSINOPHILS % (AUTO) 0 % (0-6); HEMATOCRIT 33.7 % (35.0-45.0); HEMOGLOBIN 10.9 g/dl (12.0-16.0); LYMPHOCYTES # (AUTO) 0.5 X10'3 (1.1-4.8); LYMPHOCYTES % (AUTO) 4.1 % (21-51); MEAN CORPUSCULAR HGB CONC 32.2 g/dL (33.0-36.5); MEAN CORPUSCULAR VOLUME 96.4 FL (78-98); MONOCYTES # (AUTO) 0.6 X10'3 (0-0.9); MONOCYTES % (AUTO) 5.6 % (2-12); NEUTROPHILS # (AUTO) 9.9 X10'3 (1.8-7.7); NEUTROPHILS % (AUTO) 90.3 % (42-75); PLATELET COUNT 284 X10'3 (140-440); RED CELL DISTRIBUTION WIDTH 16.3 % (11.5-14.5)
[2020-06-13 06:29] LABS: ALANINE AMINOTRANSFERASE 26 U/L (12-78); ALBUMIN 2.7 G/DL (3.4-5.0); ALBUMIN/GLOBULIN RATIO 0.7 (1.1-1.5); ALKALINE PHOSPHATASE 53 IU/L (46-116); ASPARTATE AMINO TRANSFERASE 25 U/L (10-37); BILIRUBIN,TOTAL 0.3 MG/DL (0.1-1.0); BLOOD UREA NITROGEN 39 MG/DL (7-18); BUN/CREATININE RATIO 42.4 (6.6-38.0); CALCIUM 8.6 MG/DL (8.5-10.1); CHLORIDE 102 MMOL/L (99-107); CREATININE 0.92 MG/DL (0.40-0.90); GLUCOSE 127 MG/DL (70-104); MAGNESIUM 1.8 MG/DL (1.5-2.4); POTASSIUM 4.1 MMOL/L (3.5-5.1); SODIUM 147 MMOL/L (135-145); TOTAL PROTEIN 6.5 G/DL (6.4-8.2); eGFR 59 ML/MIN
--- NOTE | 2020-06-13 06:36 | NUR ---
Problems reprioritized. Patient report given, questions answered & plan of care reviewed with Aylin GARZA.
[2020-06-13 06:43] LABS: ANION GAP -5 (8-16)
[2020-06-13 06:46] LABS: TOTAL CARBON DIOXIDE > 50 MMOL/L (24-32)
[2020-06-13] MEDS ORDERED: predniSONE 20 mg tablet PO SCH (08:00)
[2020-06-13] MEDS: K and/or MAG REPLACEMENT MC SCH ×2 (08:00→20:00)
[2020-06-13] MEDS: mineral oil/petrolatum, white cream 113gm jar TP SCH ×2 (08:00→20:00)
[2020-06-13] MEDS: nystatin 15 GM powder TP SCH ×2 (08:00→20:00)
[2020-06-13] MEDS: fluconazole 100mg tablet PO SCH (09:24)
[2020-06-13] MEDS: furosemide 40mg/4ml inj IV SCH ×2 (09:24→20:00)
[2020-06-13] MEDS: apixaban 5mg tablet PO SCH ×2 (09:24→20:00)
[2020-06-13] MEDS: lactobacillus rhamnosus 10,000 MMU CELLS/CAPSULE PO SCH ×2 (09:24→20:00)
[2020-06-13] MEDS: docusate sod 100mg capsule PO SCH ×2 (09:24→20:00)
[2020-06-13] MEDS: levoFLOXACIN-Levaquin 750MG/D5 150 ML IV SCH (09:25)
[2020-06-13 11:00] VITALS: BP 135/60
[2020-06-13 15:00] VITALS: BP 149/60
--- NOTE | 2020-06-13 15:16 | NUR ---
Initial: Pt presented to ER with c/o SOB, previously discharged with CHF. Pt admitted for acute metabolic encephalopathy, UTI, infiltrates possibly secondary to PNA per physician note. Noted Lonnie of 10, with small open area on L side under breast and small open area around rectum d/t chronic stasis dermatitis of the lower extremities with candidal/tenia infection wound. Per skin assessment, macerations under left breast and dry flaky skin wound over bilat LE. WOC following patient, documenting right ischium SDTI/DTI pressure ulcer reddened, purple. BSS done 06/12, BRIAR CUTTER reports pt edentulous with difficulty chewing and recommends pureed diet. Not eating well, poor PO intake, appears to have poor appetite however per MD progress note patient is "feeling hungry and waiting for her food." Eating 25% average. May benefit from magic cup shake, d/w dietary. Sodium up to 149 and trending back down. Recs: 1) Pureed diet per BRIAR CUTTER recs 2) Bowel care per Rx 3) Scaled wt per Rx 4) magic cup shake with meals Addendum: 06/13/20 at [address] Amended: Links added.
--- NOTE | 2020-06-13 15:40 | NUR ---
notified. PAGER ID: [phone] MESSAGE: RE: Radha De La Rosa. [phone]. Pt reporting seeing hallucinations, feels anxious. Refuses the use of BIPAP or anti-anxiety medication. FYI. Viera [phone]. Addendum: 06/13/20 at 1543 by Aylin Giraldo RN Encourage BIPAP, per Dr. Guillaume.
--- NOTE | 2020-06-13 16:12 | NUR ---
Sent to [facility] pager; Re: Radha Herman. [phone]. requesting BIPAP in room 9706m. Recently was taken out due to patient refusing. Please bring up if available.
[2020-06-13 18:00] VITALS: BP 159/91
--- NOTE | 2020-06-13 18:00 | NUR ---
Patient in room PCU 3017. I have received report from Aylin GARZA and had the opportunity to ask questions and assume patient care.
--- NOTE | 2020-06-13 18:30 | NUR ---
Problems reprioritized. Patient report given, questions answered & plan of care reviewed with KAYLA Louie.
[2020-06-13] MEDS: linezolid 600mg tablet PO SCH (20:00)
--- NOTE | 2020-06-13 20:31 | NUR ---
Refusing all care and medications PAGER ID: [phone] MESSAGE: [phone] Radha Herman: Patient is hostile tonight refusing all care and all medications.Thanks. Jacy GARZA [phone].
--- NOTE | 2020-06-13 21:19 | NUR ---
Refusing Telemetry monitoring PAGER ID: [phone] MESSAGE: [phone] Radha Herman: Patient is now refusing telemetry monitoring, unable to get near to replace leads. Can I have an order for no tele monitoring tonight? Thanks. Jacy GARZA [phone]
--- NOTE | 2020-06-13 23:17 | NUR ---
Bipap found for patient PAGER ID: [phone] MESSAGE: [phone] Radha Herman: We found a bipap for the patient, we will need sitter and soft restraint orders. Thanks. Jacy GARZA [phone]
--- NOTE | 2020-06-13 23:52 | NUR ---
promotional table spacer PAGER ID: [phone] MESSAGE: [phone] Radha Herman: Bipap ready, would you like an ABG before and after an hour? Can I put in sitter and restraint orders? Jacy GARZA [phone]
[2020-06-14 01:01] LABS: ABG BASE EXCESS 23.7 mmol/L (-2.0-2.0); ABG HCO3 51.1 mmol/L (22.0-26.0); ABG PCO2 (T) 67.6 mmHg (32.0-45.0); ABG PO2 (T) 59.3 mmHg (75.0-100.0); ALLEN'S TEST POSITIVE; FCOHb 0.1 % (0.0-3.9); FLOW 2 L/min; FMetHb 0.3 % (0.0-1.5); FO2Hb 91.6 % (94-97); PATIENT TEMPERATURE 36.5
--- NOTE | 2020-06-14 01:15 | NUR ---
abg drawn by rt horton, pt had a pt of 7.48, discussed with pt's rn and expressed consern of bipap making pt's ph more alkalotic, page sent to dr weller to discuss pt's abg and report values to him and discuss if bipap is still wanted, will wait for call back. pt is ad Addendum: 06/14/20 at 0122 by Shyam Sen RT abg drawn by rt horton, pt had a pt of 7.48, discussed with pt's rn and expressed consern of bipap making pt's ph more alkalotic, page sent to dr weller to discuss pt's abg and report values to him and discuss if bipap is still wanted, will wait for call back. pt is adamantly refusing bipap at this moment though aloc is noted
--- NOTE | 2020-06-14 04:50 | NUR ---
Patient refused all care tonight Very combative, yelling, resistive to care, no telemetry, no vitals, etc. MD Nowak aware. By 0330 AM, patient was convince to do some oral care and to drink some water. Will continue to monitor.
[2020-06-14 06:00] VITALS: BP 127/46
--- NOTE | 2020-06-14 06:20 | NUR ---
Patient in room PCU 3017. I have received report from KAYLA Louie and had the opportunity to ask questions and assume patient care. Pt sitting up in bed, resting comfortably at change of shift.
--- NOTE | 2020-06-14 06:34 | NUR ---
Problems reprioritized. Patient report given, questions answered & plan of care reviewed with Arabella GARZA.
[2020-06-14 07:00] LABS: MAGNESIUM 1.8 MG/DL (1.5-2.4)
[2020-06-14] MEDS: mineral oil/petrolatum, white cream 113gm jar TP SCH (07:58)
[2020-06-14] MEDS: nystatin 15 GM powder TP SCH (07:58)
[2020-06-14] MEDS: docusate sod 100mg capsule PO SCH (07:58)
[2020-06-14] MEDS: apixaban 5mg tablet PO SCH (07:59)
[2020-06-14] MEDS: lactobacillus rhamnosus 10,000 MMU CELLS/CAPSULE PO SCH (07:59)
[2020-06-14] MEDS: K and/or MAG REPLACEMENT MC SCH (08:00)
[2020-06-14] MEDS ORDERED: predniSONE 20 mg tablet PO SCH (08:00)
[2020-06-14] MEDS: linezolid 600mg tablet PO SCH (08:00)
[2020-06-14] MEDS: fluconazole 100mg tablet PO SCH (08:01)
[2020-06-14] MEDS: furosemide 40mg/4ml inj IV SCH ×2 (08:02→08:07)
[2020-06-14 09:42] LABS: BASOPHILS % (AUTO) 0.2 % (0-1); EOSINOPHILS % (AUTO) 0 % (0-6); HEMATOCRIT 34.7 % (35.0-45.0); HEMOGLOBIN 11.2 g/dl (12.0-16.0); LYMPHOCYTES # (AUTO) 0.7 X10'3 (1.1-4.8); LYMPHOCYTES % (AUTO) 4.6 % (21-51); MEAN CORPUSCULAR HEMOGLOBIN 31.4 PG (27.0-31.0); MEAN CORPUSCULAR HGB CONC 32.4 g/dL (33.0-36.5); MEAN CORPUSCULAR VOLUME 96.9 FL (78-98); MEAN PLATELET VOLUME 8.7 FL (7.4-10.4); MONOCYTES # (AUTO) 1.6 X10'3 (0-0.9); MONOCYTES % (AUTO) 11.2 % (2-12); NEUTROPHILS # (AUTO) 11.8 X10'3 (1.8-7.7); PLATELET COUNT 286 X10'3 (140-440); RED BLOOD COUNT 3.58 X10'6 (4.20-5.60); RED CELL DISTRIBUTION WIDTH 16.4 % (11.5-14.5); WHITE BLOOD COUNT 14.1 X10'3 (4.5-11.0)
[2020-06-14 10:00] LABS: PLATELET ESTIMATE NORMAL; TOTAL CELLS COUNTED 100
[2020-06-14 10:01] LABS: ANISOCYTOSIS 1+; POIKILOCYTOSIS FEW; STOMATOCYTES 1+
[2020-06-14 10:04] LABS: ALANINE AMINOTRANSFERASE 31 U/L (12-78); ALBUMIN 2.8 G/DL (3.4-5.0); ALBUMIN/GLOBULIN RATIO 0.8 (1.1-1.5); ALKALINE PHOSPHATASE 53 IU/L (46-116); ASPARTATE AMINO TRANSFERASE 33 U/L (10-37); BILIRUBIN,TOTAL 0.5 MG/DL (0.1-1.0); BLOOD UREA NITROGEN 40 MG/DL (7-18); CHLORIDE 99 MMOL/L (99-107); CREATININE 0.91 MG/DL (0.40-0.90); GLUCOSE 100 MG/DL (70-104); POTASSIUM 3.7 MMOL/L (3.5-5.1); SODIUM 145 MMOL/L (135-145); TOTAL PROTEIN 6.5 G/DL (6.4-8.2); eGFR 59 ML/MIN
[2020-06-14 10:20] LABS: ANION GAP -1 (8-16)
[2020-06-14 10:21] LABS: TOTAL CARBON DIOXIDE 47.2 MMOL/L (24-32)
--- NOTE | 2020-06-14 10:28 | NUR ---
Paged Dr Guillaume regarding Critical lab value PAGER ID: [phone] MESSAGE: Radha Guzman Rm [phone] Critical venous C02 47.2, down from >50 yesterday. Thanks Arabella Merino [phone]
[2020-06-14 11:00] VITALS: BP 128/57
[2020-06-14] MEDS ORDERED: levoFLOXACIN 750MG TABLET PO SCH (11:00)
[2020-06-14] MEDS ORDERED: POTA20TA10 PO (13:09)
[2020-06-14] MEDS ORDERED: LINE600T14 PO (13:09)
[2020-06-14] MEDS ORDERED: FURO20TA4 PO (13:09)
--- NOTE | 2020-06-14 14:22 | NUR ---
O2 Sat at rest on room air:___86% If below 89%: Recovery O2 Sat at rest on __2_LPM:__93_%:___% via__nasal cannula__(mask/nasal cannula, etc..) No further documentation is necessary. If O2 Sat did not drop below 89% on room air,ambulate patient on room air. O2 Sat while ambulating on room air:___% Recovery O2 Sat while ambulating on ___LPM:___% No further documentation is necessary. If patient does not drop below 89% while ambulating, he/she does not qualify for home O2.
--- NOTE | 2020-06-14 14:26 | NUR ---
Paged Dr Guillaume PAGER ID: [phone] MESSAGE: Re Radha Herman [phone] Can you call me SALLY, do you want the Love kept in for the pt to go home with? Thanks Arabella Merino [phone]
[2020-06-14] MEDS ORDERED: WARF-55 PO (15:35)
--- NOTE | 2020-06-14 15:45 | NUR ---
Pt stable for discharge per MD orders. All belongings were collected and sent with patient. Instructions were given to pt and Debbie (caregiver). Informed Debbie to make an appt with PCP within 1 week. New Rx called into [facility] on [address]. PIV discontinued, cannula intact. Tele discontinued, telephone solicitor notified. Love discontinued per Dr Guilluame's telephone order. Took wound pictures. Spoke with case management, they informed me that patient will have oxygen at home. [facility] picked pt up and took pt home.
--- NOTE | 2020-06-14 16:09 | NUR ---
Zyvox consult: Pt started on zyvox; written ed w/ RACHEL contact information placed in pt chart. Addendum: 06/14/20 at [address] Amended: Links added.
[2020-06-14] MEDS ORDERED: warfarin 5mg tablet PO SCH (21:00)
== END 2020-06-14 15:30 | disposition home health service (06) | DRG 70 ==
LOC: ER 03:19 → ED HOLD 09:55 → MED 3N 17:00 → PCU 3S 06-12 10:31
PROVIDERS: ADMIT Family Medicine; ATTEND Internal Medicine
PROC: 5A09357 Assistance with Respiratory Ventilation, Less than 24 Consecutive Hours, Continuous Positive Airway Pressure (ICD-10-PCS; principal; 2020-06-08)
PROC: 5A09357 Assistance with Respiratory Ventilation, Less than 24 Consecutive Hours, Continuous Positive Airway Pressure (ICD-10-PCS; 2020-06-11)
DX: G93.41 Metabolic encephalopathy (principal); J96.22 Acute and chronic respiratory failure with hypercapnia; I21.A1 Myocardial infarction type 2; J18.9 Pneumonia, unspecified organism; J96.21 Acute and chronic respiratory failure with hypoxia; J44.0 Chronic obstructive pulmonary disease with (acute) lower respiratory infection; E87.4 Mixed disorder of acid-base balance; E87.1 Hypo-osmolality and hyponatremia; I48.20 Chronic atrial fibrillation, unspecified; E87.0 Hyperosmolality and hypernatremia; N39.0 Urinary tract infection, site not specified; Z68.43 Body mass index [BMI] 50.0-59.9, adult; J44.1 Chronic obstructive pulmonary disease with (acute) exacerbation; I50.32 Chronic diastolic (congestive) heart failure; Z20.828 Contact with and (suspected) exposure to other viral communicable diseases; E66.01 Morbid (severe) obesity due to excess calories; E78.5 Hyperlipidemia, unspecified; Z80.3 Family history of malignant neoplasm of breast; I87.2 Venous insufficiency (chronic) (peripheral); Z66 Do not resuscitate; D64.9 Anemia, unspecified; E87.6 Hypokalemia; B95.2 Enterococcus as the cause of diseases classified elsewhere; M54.9 Dorsalgia, unspecified; M19.90 Unspecified osteoarthritis, unspecified site; G89.29 Other chronic pain; E11.9 Type 2 diabetes mellitus without complications; Z74.01 Bed confinement status; Z91.14 Patient's other noncompliance with medication regimen; B37.2 Candidiasis of skin and nail
CPT/HCPCS: 36415; 36600; 71045; 80053; 81001; 82803; 83605; 83735; 83880; 84145; 84484; 85007; 85018; 85025; 85610; 85730; 87040; 87077; 87081; 87088; 87186; 87635; 92508; 92616; 93005; 94660; 94760; 96365; 96375; 97110; 97161; 97163; 97530; 99285; C9803; G0378; J1170; J1450; J1940; J1956; J2920; J7512

== ENCOUNTER 2020-06-24 16:08 | Emergency (ER) | payer MEDICARE, BC ==
[~2020-06-24] VITALS: Ht 162.6 cm; Wt 181.8 kg
[~2020-06-24 16:08] MED LIST changes: -APIX5TAB3 PO; -ATOR20TA66 PO; -CHOL10002 PO; -DOCU-264 PO; -FURO-149 PO; +FURO20TA4 PO; +LINE600T14 PO; -NYSPWD TP; -POTA10TA36 PO; +POTA20TA10 PO; -VIT1CAPS9 PO; +WARF-55 PO; -WOOL454C TP
[2020-06-24 16:59] LABS: BASOPHILS # (AUTO) 0.1 X10'3 (0-0.2); EOSINOPHILS # (AUTO) 0.2 X10'3 (0-0.9); EOSINOPHILS % (AUTO) 2.1 % (0-6); HEMATOCRIT 31.8 % (35.0-45.0); HEMOGLOBIN 10.4 g/dl (12.0-16.0); LYMPHOCYTES % (AUTO) 17.7 % (21-51); MEAN CORPUSCULAR HEMOGLOBIN 31.7 PG (27.0-31.0); MEAN CORPUSCULAR HGB CONC 32.8 g/dL (33.0-36.5); MEAN CORPUSCULAR VOLUME 96.7 FL (78-98); MEAN PLATELET VOLUME 7.1 FL (7.4-10.4); MONOCYTES # (AUTO) 0.8 X10'3 (0-0.9); MONOCYTES % (AUTO) 6.7 % (2-12); NEUTROPHILS # (AUTO) 8.2 X10'3 (1.8-7.7); NEUTROPHILS % (AUTO) 72.5 % (42-75); PLATELET COUNT 214 X10'3 (140-440); RED BLOOD COUNT 3.29 X10'6 (4.20-5.60); RED CELL DISTRIBUTION WIDTH 16.5 % (11.5-14.5); WHITE BLOOD COUNT 11.3 X10'3 (4.5-11.0)
[2020-06-24 17:14] LABS: ALANINE AMINOTRANSFERASE 27 U/L (12-78); ALBUMIN 2.5 G/DL (3.4-5.0); ALBUMIN/GLOBULIN RATIO 0.7 (1.1-1.5); ALKALINE PHOSPHATASE 70 IU/L (46-116); ANION GAP 5 (8-16); ASPARTATE AMINO TRANSFERASE 22 U/L (10-37); BILIRUBIN,TOTAL 0.5 MG/DL (0.1-1.0); BLOOD UREA NITROGEN 26 MG/DL (7-18); BUN/CREATININE RATIO 30.2 (6.6-38.0); CHLORIDE 98 MMOL/L (99-107); CREATININE 0.86 MG/DL (0.40-0.90); GLUCOSE 92 MG/DL (70-104); POTASSIUM 4.8 MMOL/L (3.5-5.1); SODIUM 140 MMOL/L (135-145); TOTAL CARBON DIOXIDE 37.1 MMOL/L (24-32); TOTAL PROTEIN 6.1 G/DL (6.4-8.2); eGFR 63 ML/MIN
[2020-06-24 18:45] LABS: URINE AMPHETAMINE SCREEN NEGATIVE (Neg); URINE BARBITUATE SCREEN NEGATIVE (Neg); URINE BENZODIAZEPINES SCREEN NEGATIVE (Neg); URINE CANNABINOID SCREEN NEGATIVE (Neg); URINE COCAINE SCREEN NEGATIVE (Neg); URINE METHADONE SCREEN NEGATIVE (Neg); URINE OPIATE SCREEN POSITIVE (Neg); URINE PHENCYCLIDINE SCREEN NEGATIVE (Neg)
[2020-06-24] MEDS ORDERED: phytonadione 10 MG/1 ML amp PO ONE (19:30)
[2020-06-24] MEDS ORDERED: PHYT100T PO (19:55)
[2020-06-24 20:19] VITALS: BP 133/50
== END 2020-06-24 20:26 | disposition home or self-care (01) ==
LOC: ER 16:09
DX: D68.59 Other primary thrombophilia (principal); L03.116 Cellulitis of left lower limb; L03.115 Cellulitis of right lower limb; E66.01 Morbid (severe) obesity due to excess calories; E11.9 Type 2 diabetes mellitus without complications; Z68.44 Body mass index [BMI] 60.0-69.9, adult; Z88.8 Allergy status to other drugs, medicaments and biological substances; Z79.899 Other long term (current) drug therapy
CPT/HCPCS: 36415; 80053; 80305; 85025; 99283; J3430